=== PATIENT | male | born 1950 | race Caucasian/White ===

== ENCOUNTER 2024-11-15 11:23 | Inpatient (IN) | payer OTHER ==
[2024-11-15 12:50] LABS: Absolute Basophils 0.1 K/uL (0-0.5); Absolute Eosinophils 0.5 K/uL (0-0.5); Absolute Lymphocytes (CBC) 1.9 K/uL (0.7-4.9); Absolute Neutrophil 9.1 K/uL (1.8-8.0); Basophils % 0.6 % (0-1.3); Eosinophils % 4.2 % (0-4.4); Hematocrit 34.6 % (39.6-49.0); Hemoglobin 11.6 g/dL (13.6-17.9); Lymphocytes % 15.2 % (15.3-44.8); MCH 27.3 pg (27.0-35.0); MCHC 33.4 g/dL (32.0-36.0); MCV 81.6 fL (80-100); MPV 9.4 fL (7.6-11.3); Platelets 408 thou/uL (152-406); RBC Red Blood Cell Count 4.24 M/uL (4.33-5.43)
[2024-11-15 12:59] LABS: PT Prothrombin Time 11.9 SECONDS (10.0-13.0); Protime INR 1.05
--- NOTE | 2024-11-15 13:57 | RAD REPORT ---
EXAMINATION: XR Foot Right 3 View CLINICAL INDICATION: Male, 74 years old. [facility] MAIN gangrene 5th toe Bed Name: [id number] TECHNIQUE: 3 view radiographs of the right foot were obtained. COMPARISON: No prior exam. FINDINGS: No evidence of fracture or dislocation. No suspicious focal bone lesion. Soft tissues show mild swelling along the lateral forefoot. Mild calcaneal spur. Enthesopathy at the Achilles tendon attachment. Vascular calcifications. No significant degenerative changes. IMPRESSION: No acute osseous abnormalities. Soft tissue swelling along the lateral forefoot.
--- NOTE | 2024-11-15 14:34 | ER ---
Nurse's Notes [facility] Name: Magen Zhao Age: 74 yrs Sex: Male : 1950 Arrival Date: 11/15/2024 Time: 11:23 Bed 15 Private MD: Diagnosis: Gangrene, not elsewhere classified;Cellulitis of right toe Presentation: 11/15 11:50 Chief complaint: Patient states: blackened right pinky toe , hx of diabetes, sister iw says the last time she checked it was a month ago, he has no feeling in his foot , thinks he might have ran over it with his wheelchair. Coronavirus screen: At this time, the client does not indicate any symptoms associated with coronavirus-19. Ebola Screen: No symptoms or risks identified at this time. Initial Sepsis Screen: Does the patient meet any 2 criteria? No. Patient's initial sepsis screen is negative. Does the patient have a suspected source of infection? No. Patient's initial sepsis screen is negative. Risk Assessment: Do you want to hurt yourself or someone else? Patient reports no desire to harm self or others. Onset of symptoms was September 2024. 11:50 Method Of Arrival: Wheelchair iw 11:50 Acuity: ELAINE 3 iw Triage Assessment: 11:53 General: Appears in no apparent distress. Behavior is calm, cooperative. Pain: Denies iw pain. Musculoskeletal: Amputation of right fifth toe. Historical: - Allergies: 11:52 No Known Allergies; iw - Home Meds: 12:36 amlodipine 10 mg tablet 2 times per day [Active]; levetiracetam 500 mg oral tablet 2 iw times per day [Active]; famotidine 40 mg oral tablet daily [Active]; fluoxetine 20 mg Oral tablet daily [Active]; atorvastatin 20 mg oral tablet daily [Active]; clopidogrel 75 mg oral tablet daily [Active]; lisinopril 40 mg Oral tablet daily [Active]; - PMHx: 11:52 Diabetes mellitus; Hypertensive disorder; iw - PSHx: 11:52 left AKA; iw - Immunization history:: Adult Immunizations up to date. - Infectious Disease History:: Denies. - Social history:: Smoking status: Patient reports the use of cigarette tobacco products, cigars. - Family history:: not pertinent. - Hospitalizations: : No recent hospitalization is reported. Screenin:07 [facility] ED Fall Risk Assessment (Adult) History of falling in the last 3 months, db including since admission Yes- single mechanical fall (1 pt) Confusion or Disorientation No (0 pts) Intoxicated or Sedated No (0 pts) Impaired Gait Yes (1 pt) Mobility Assist Device Used Yes (1 pt) Altered Elimination No (0 pt) Score/Fall Risk Level 3 or more points = High Risk Oriented to surroundings, Maintained a safe environment. Abuse screen: Denies threats or abuse. Denies injuries from another. Nutritional screening: No deficits noted. Tuberculosis screening: No symptoms or risk factors identified. Assessment: 14:43 Reassessment: Patient appears in no apparent distress at this time. Patient and/or db family updated on plan of care and expected duration. Pain level reassessed. 16:00 Reassessment: Patient appears in no apparent distress at this time. Patient and/or db family updated on plan of care and expected duration. Pain level reassessed. Patient is alert, oriented x 3, equal unlabored respirations, skin warm/dry/pink. 17:20 Reassessment: PATIENT PROVIDED DINNER TRAY. db 17:26 Reassessment: Patient appears in no apparent distress at this time. Patient and/or db family updated on plan of care and expected duration. Pain level reassessed. Patient is alert, oriented x 3, equal unlabored respirations, skin warm/dry/pink. SISTERS CONTACT. BRAYDEN RUTHERFORD [phone]. 18:30 Reassessment: Patient appears in no apparent distress at this time. Patient and/or db family updated on plan of care and expected duration. Pain level reassessed. Patient is alert, oriented x 3, equal unlabored respirations, skin warm/dry/pink. General: Appears in no apparent distress. comfortable. Neuro: Level of Consciousness is awake, alert, obeys commands, Oriented to person, place, time, situation. Respiratory: Airway is patent Respiratory effort is even, unlabored, Respiratory pattern is regular, symmetrical. Vital Signs: 11:50 BP 139 / 81; Pulse 79; Resp 16; Temp 97; Pulse Ox 100% ; Weight 63.5 kg; Height 5 ft. 6 iw in. ; 15:45 BP 162 / 88; Pulse 67; Resp 18; Pulse Ox 96% ; db 16:00 BP 178 / 94; Pulse 67; Resp 16; Pulse Ox 96% ; db 11/16 09:30 BP 172 / 78 LA Supine (auto/reg); Pulse 67; Resp 16 S; Pulse Ox 100% on R/A; td1 11/15 11:50 Body Mass Index 22.60 (63.50 kg, 167.64 cm) iw ED Course: 11/15 11:27 Patient arrived in ED. al6 11:30 Sung Lr MD is Attending Physician. rn 11:52 Triage completed. iw 11:52 Arm band placed on. iw 12:15 First set of blood cultures drawn by me. bc6 12:45 Second set of blood cultures drawn by me. bc6 12:47 Blood Culture Adult (2) Sent. bc6 12:47 CBC with Diff Sent. bc6 12:47 CMP Sent. bc6 12:48 Lactate w/ 2H reflex if indic. Sent. bc6 12:48 Protime (+inr) Sent. bc6 12:48 Ptt, Activated Sent. bc6 12:48 Initial lab(s) drawn, by me, sent to lab. Inserted saline lock: 20 gauge in right bc6 forearm, using aseptic technique. Blood collected. Flushed with 10 mL NS. 13:21 XRAY Foot RIGHT 3 View In Process Unspecified. EDMS 14:00 Patient placed in an exam room, on a stretcher. bp 14:24 Lower Extremity Artery Uni Ltd US In Process Unspecified. EDMS 14:28 Simi Alston, RN is Primary Nurse. db 14:33 Max Tavares MD is Hospitalizing Provider. rn 14:43 Patient moved back from radiology. db 15:45 Lab(s) recollected, by me, sent to lab. EKG done, by ED staff. db 19:10 Patient has correct armband on for positive identification. Bed in low position. Side db rails up X 1. Provided Education on: ADMISSION. Client placed on continuous cardiac and pulse oximetry monitoring. NIBP monitoring applied. air sampling and monitoring on. Pulse ox on. NIBP on. Warm blanket given. Pillow given. 19:10 No provider procedures requiring assistance completed. Patient admitted, IV remains in db place. 11/16 06:52 Primary Nurse role handed off by Simi Alston, RN bd 08:34 Repositioned into more comfortable position. td1 Administered Medications: 11/15 15:45 Drug: vancoMYCIN IVPB 1 grams IVPB once over 2 hrs Route: IVPB; Infused Over: 2 hrs; db Site: right forearm; 17:30 Follow up: Response: No adverse reaction; IV Status: Completed infusion; IV Intake: db 250ml Medication: 16:07 VIS not applicable for this client. db Intake: 17:30 IV: 250ml; Total: 250ml. db Outcome: 14:34 Decision to Hospitalize by Provider. rn 19:10 Admitted to ER Hold. Please see [facility] for further documentation. db 19:10 Condition: stable 19:10 Instructed on the need for admit, 11/16 10:15 Patient left the ED. db Signatures: Dispatcher [employer] EDMS Holly Godfrey Irene, RN RN iw Sung Lr MD MD rn Peltier, Brian, RN RN bp Benton, Danielle, RN RN db Riya Jaquez bc6 Latoya Flores al6 Ayaz Wood td1 Corrections: (The following items were deleted from the chart) 11/15 11:53 11:50 BP 154 / 100; Pulse 79bpm; Resp 16bpm; Pulse Ox 100%; Temp 97F; 63.5 kg; Height 5 iw ft. 6 in.; BMI: 22.6; iw
--- NOTE | 2024-11-15 14:34 | EDPHYS ---
Physician Documentation [facility] Name: Magen Zhao Age: 74 yrs Sex: Male : 1950 Arrival Date: 11/15/2024 Time: 11:23 Bed 15 Private MD: ED Physician Sung Lr HPI: 11/15 12:39 This 74 yrs old Male presents to ER via Wheelchair with complaints of open wound check. rn 12:39 The patient presents with Black toe. The complaints affect the right foot. Onset: The rn symptoms/episode began/occurred at an unknown time. The patient has not experienced similar symptoms in the past. Patient and family report last looked at his feet 1 month ago. Checked feet today and noticed a black fifth toe. Unknown if trauma but patient is concerned he ran over with wheelchair. No fever or chills. Has neuropathy and does not feel his foot. Denies pain. No redness or warmth.. Historical: - Allergies: 11:52 No Known Allergies; iw - Home Meds: 12:36 amlodipine 10 mg tablet 2 times per day [Active]; levetiracetam 500 mg oral tablet 2 iw times per day [Active]; famotidine 40 mg oral tablet daily [Active]; fluoxetine 20 mg Oral tablet daily [Active]; atorvastatin 20 mg oral tablet daily [Active]; clopidogrel 75 mg oral tablet daily [Active]; lisinopril 40 mg Oral tablet daily [Active]; - PMHx: 11:52 Diabetes mellitus; Hypertensive disorder; iw - PSHx: 11:52 left AKA; iw - Immunization history:: Adult Immunizations up to date. - Infectious Disease History:: Denies. - Social history:: Smoking status: Patient reports the use of cigarette tobacco products, cigars. - Family history:: not pertinent. - Hospitalizations: : No recent hospitalization is reported. ROS: 12:39 Constitutional: Negative for fever, chills, and weight loss, Cardiovascular: Negative rn for chest pain, palpitations, and edema, Respiratory: Negative for shortness of breath, wheezing, and pleuritic chest pain, Abdomen/GI: Negative for abdominal pain, nausea, vomiting, diarrhea, and constipation, MS/Extremity: Positive for black toe, right foot Neuro: Negative for headache Exam: 12:39 Constitutional: This is a well developed, well nourished patient who is awake, alert, rn and in no acute distress. Cardiovascular: Regular rate and rhythm . No pulse deficits. MS/ Extremity: No cyanosis noted. Has dry gangrene of the right fifth toe. Does not extend towards foot. No drainage or fluctuance. Does have foul smell. Difficult to appreciate any pulses in right foot. 16:46 ECG was reviewed by the Attending Physician. rn Vital Signs: 11:50 BP 139 / 81; Pulse 79; Resp 16; Temp 97; Pulse Ox 100% ; Weight 63.5 kg; Height 5 ft. 6 iw in. ; 15:45 BP 162 / 88; Pulse 67; Resp 18; Pulse Ox 96% ; db 16:00 BP 178 / 94; Pulse 67; Resp 16; Pulse Ox 96% ; db 11/16 09:30 BP 172 / 78 LA Supine (auto/reg); Pulse 67; Resp 16 S; Pulse Ox 100% on R/A; td1 11/15 11:50 Body Mass Index 22.60 (63.50 kg, 167.64 cm) iw MDM: 11/15 11:30 Medical Screening Exam initiated rn 14:32 Differential diagnosis: fracture, cellulitis, Gangrene, osteomyelitis. Data reviewed: rn vital signs, nurses notes, lab test result(s), radiologic studies, plain films, ultrasound, and as a result, I will admit patient. Consideration of Admission/Observation Patient was admitted/placed on observation. Escalation of care including admission/observation considered. Counseling: I had a detailed discussion with the patient and/or guardian regarding the historical points, exam findings, and any diagnostic results supporting the discharge/admit diagnosis, lab results, radiology results, the need for further work-up and treatment in the hospital. ED course: Patient with elevated WBC, x-ray without fracture or signs of osteomyelitis. Will admit for gangrene and cellulitis of the right toe and foot. Normal lactic acid.. 11/15 11:55 Order name: Blood Culture Adult (2) rn 11/15 11:55 Order name: CBC with Diff; Complete Time: 13:28 rn 11/15 11:55 Order name: CMP; Complete Time: 16:36 rn 11/15 11:55 Order name: Lactate w/ 2H reflex if indic.; Complete Time: 13:28 rn 11/15 11:55 Order name: Protime (+inr); Complete Time: 13:28 rn 11/15 11:55 Order name: Ptt, Activated; Complete Time: 13:28 rn 11/16 07:43 Order name: Glucose, Ancillary Testing EDMS 11/15 11:55 Order name: XRAY Foot RIGHT 3 View; Complete Time: 14:03 rn 11/15 13:15 Order name: Lower Extremity Artery Uni Ltd US; Complete Time: 16:49 rn 11/15 11:55 Order name: EKG; Complete Time: 11:55 rn 11/15 11:55 Order name: Accucheck; Complete Time: 16:05 rn 11/15 11:55 Order name: Cardiac monitoring; Complete Time: 16:05 rn 11/15 11:55 Order name: EKG - Nurse/Tech; Complete Time: 16:05 rn 11/15 11:55 Order name: IV Saline Lock - Large Bore; Complete Time: 12:47 rn 11/15 11:55 Order name: Labs collected and sent; Complete Time: 12:47 rn 11/15 11:55 Order name: O2 Per Protocol; Complete Time: 16: rn 11/15 11:55 Order name: O2 Sat Monitoring; Complete Time: 16:05 rn 11/15 11:55 Order name: Vital Signs; Complete Time: 16:05 rn 11/15 15:12 Order name: Misc. Order: recollect CMP (Light green top); Complete Time: 16:05 la1 EC:46 Rate is 67 beats/min. Rhythm is regular. QRS [place] is Normal. TX interval is normal. QRS rn interval is normal. QT interval is normal. No Q waves. T waves are Normal. No ST changes noted. Clinical impression: NSR w/ Non-specific ST/T Changes. Interpreted by me. Reviewed by me. Administered Medications: 15:45 Drug: vancoMYCIN IVPB 1 grams IVPB once over 2 hrs Route: IVPB; Infused Over: 2 hrs; db Site: right forearm; 17:30 Follow up: Response: No adverse reaction; IV Status: Completed infusion; IV Intake: db 250ml Disposition Summary: 11/15/24 14:34 Hospitalization Ordered Notes: Hospitalization Status: Inpatient Admission rn Provider: Max Tavares rn Condition: Stable rn Problem: new rn Symptoms: are unchanged rn Bed/Room Type: Standard rn Location: Telemetry/MedSurg (Inpatient)(11/16/24 08:29) bd Room Assignment: 229(11/16/24 08:29) bd Diagnosis - Gangrene, not elsewhere classified rn - Cellulitis of right toe rn Forms: - Medication Reconciliation Form rn - SBAR form rn - Leadership Thank You Letter rn Signatures: Dispatcher [employer] EDHolly George Irene, RN RN iw Nieto, Roman, MD MD rn Attema, Lee, WIRED MUSIC OPERATOR-C WIRED MUSIC OPERATOR-Cla1 Hallie Pimentel RN RN kb3 Simi Alston RN RN db Corrections: (The following items were deleted from the chart) 17:24 14:34 Telemetry/MedSurg (Inpatient) rn kb3 17:24 14:34 rn kb3 11/16 08:29 11/15 17:24 [facility] ER HOLD kb3 bd 11/16 08:11/15 17:24 ERHOLD- kb3 bd
[2024-11-15] MEDS ORDERED: NA CHLORIDE 0.9% 250 ML ONE (15:11)
[2024-11-15] MEDS ORDERED: VANCOMYCIN 1 GM/VIAL ONE (15:11)
--- NOTE | 2024-11-15 15:18 | P.HP ---
Certification for Inpatient Patient admitted to: Inpatient With expected LOS: >2 Midnights Patient will require the following post-hospital care: None Practitioner: I am a practitioner with admitting privileges, knowledge of patient current condition, hospital course, and medical plan of care. Services: Services provided to patient in accordance with Admission requirements found in Title 42 Section 412.3 of the Code of Federal Regulations Patient History Date of Service: 11/15/24 Reason for admission: Dry gangrene History of Present Illness: 74-year-old male with history of tobacco use disorder, zjw-pbbmivt-udytybkqa diabetes, hypertension, hyperlipidemia and seizure disorder presents to the emergency department chief complaint of foot wound. He and his family noticed that his right fifth toe was black today, unsure how long has been like this possibly up to a month. Patient was evaluated in the emergency department his labs are significant for leukocytosis with a white blood cell count of 12.7 lactic acid was 1.8, x-ray did not show signs of osteomyelitis or gas or infection, arterial Doppler showed monophasic flow. Patient be admitted for further evaluation management of dry gangrene. - Past Medical/Surgical History -: Uvt-pvxarcl-ihpegbeob diabetes -: Tobacco use disorder -: Hypertension -: Hyperlipidemia -: Seizure disorder -: Left AKA Psychosocial/ Personal History: Patient is at home with his sister - Family History Family History: Reviewed- Non-Contributory - Social History Smoking Status: Current every day smoker Alcohol use: No CD- Drugs: No Caffeine use: Yes Place of Residence: Home Review of Systems 10-point ROS is otherwise unremarkable Integumentary: As per HPI Physical Examination - Physical Exam General: Alert, In no apparent distress, Oriented x3 HEENT: Atraumatic, PERRLA, EOMI Neck: Supple, 2+ carotid pulse no bruit, No LAD Respiratory: Clear to auscultation bilaterally, Normal air movement Cardiovascular: Regular rate/rhythm, Normal S1 S2 Gastrointestinal: Normal bowel sounds, No tenderness Musculoskeletal: No tenderness Integumentary: Other (Dry gangrene of the left fifth toe) Neurological: Normal gait, Normal speech, Normal tone, Normal affect - Studies Laboratory Data (last 24 hrs) 11/15/24 11/15/24 12:45 12:45 WBC 12.70 H Hgb 11.6 L Hct 34.6 L Plt Count 408 H PT 11.9 INR 1.05 APTT 34.0 Assessment and Plan - Plan Assessment: Dry gangrene left fifth toe PAD Tobacco use disorder Diabetes mellitus type [id number] Hypertension Hyperlipidemia Seizure disorder Plan: Dry gangrene left fifth toe PAD Arterial Doppler with monophasic flow, no occlusion Dry gangrene presents with left fifth toe General surgery consultation, IV antibiotics with vancomycin Anticipate need for debridement/possible amputation 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, 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 Tobacco use disorder Counseled extensively on need for tobacco cessation and its contribution to his poor circulation/infections Diabetes mellitus type [id number]-[id number] ACHS Accu-Chek, sliding scale insulin, A1c in the morning Hypertension Hyperlipidemia Seizure disorder Continue home medications when verified DVT PPX: SCD Code status: Full Discharge Plan: Home Plan to discharge in: Greater than 2 days - Advance Directives Does patient have a Living Will: No Does patient have a Durable POA for Healthcare: No - Code Status/Comfort Care Code Status Assessed: Yes (Full code) Critical Care: No Time Spent Managing Pts Care (In Minutes): 65
[2024-11-15 16:32] LABS: AST/SGOT 14 U/L (15-37); Albumin 2.3 g/dL (3.4-5.0); Albumin/Globulin Ratio 0.5 (1.1-1.8); Alkaline Phosphatase 110 U/L (45-117); BUN Blood Urea Nitrogen 17 mg/dL (7-18); Bicarbonate 29 mEq/L (21-32); Bilirubin Total 0.2 mg/dL (0.2-1.0); Globulin 4.9 g/dL (2.3-3.5); Glomerular Filtration Rate 48 ml/min (=/>90); Glucose Level 128 mg/dL (74-106); Protein, Total 7.2 g/dL (6.4-8.2); Sodium Level 142 mEq/L (136-145)
[2024-11-15 16:34] LABS: ALT/SGPT < 14 U/L (16-61)
--- NOTE | 2024-11-15 16:48 | RAD REPORT ---
EXAMINATION:Lower Extremity Artery Uni Ltd CLINICAL INDICATION: Male, 74 years old. [facility] MAIN right leg gangrene right 5th toe Bed Name: IW1 TECHNIQUE: Arterial duplex ultrasound was performed of the Right lower extremity with real-time, colo r-flow, and spectral wave Doppler evaluation. COMPARISON: No prior exam. FINDINGS: Moderate to advanced plaque throughout the evaluated arterial system. Triphasic to biphasic waveform s are seen throughout the evaluated Right lower extremity arterial system, to the level of the popliteal artery. Monophasic waveforms seen along the right dorsalis pedis and posterior tibial arter ies. No other suspicious findings. IMPRESSION: Evidence of up to moderate peripheral vascular disease.
[2024-11-15 19:36] VITALS: BMI 22.6
[2024-11-16] MEDS: FLU (Fluarix Triv) TS24-25(6MOS UP)/PF 45 MCG/0.5 ML Syringe IM ONE (07:15)
[2024-11-16] MEDS: PNEUMOCOCCAL VACCINE 0.5 ML IMVAC ONE (08:00)
[2024-11-16] MEDS ORDERED: HYDROCODONE/APAP 5/325 MG TAB PO PRN (11:46)
[2024-11-16] MEDS ORDERED: ONDANSETRON 4 MG/2 ML VIAL IV PRN (11:46)
[2024-11-16] MEDS ORDERED: MELATONIN 5 MG TABLET PO PRN (11:46)
[2024-11-16] MEDS ORDERED: MORPHINE 2 MG/ML SYR IV PRN (11:46)
[2024-11-16] MEDS: NA CHLORIDE 0.9% 1,000 ML ONE (12:21)
[2024-11-16] MEDS ORDERED: ONDANSETRON 4 MG/2 ML VIAL ONE (12:26)
[2024-11-16] MEDS ORDERED: FENTANYL CITR 100 MCG/2 ML ONE (12:26)
[2024-11-16] MEDS ORDERED: propofoL 200 MG/20 ML VIAL IV ONE (12:26)
[2024-11-16] MEDS ORDERED: LIDOCAINE 2% MPF 5 ML VIAL ONE (12:26)
[2024-11-16 12:36] LABS: Absolute Basophils 0.1 K/uL (0-0.5); Absolute Eosinophils 0.4 K/uL (0-0.5); Absolute Lymphocytes (CBC) 1.9 K/uL (0.7-4.9); Absolute Monocytes 0.7 K/uL (0.1-1.3); Absolute Neutrophil 8.2 K/uL (1.8-8.0); Eosinophils % 3.2 % (0-4.4); Hematocrit 34.7 % (39.6-49.0); Hemoglobin 11.8 g/dL (13.6-17.9); Lymphocytes % 16.5 % (15.3-44.8); MCH 27.7 pg (27.0-35.0); MCV 81.4 fL (80-100); Monocytes % 6.4 % (3.3-12.3); Neutrophils % 72.9 % (41.7-73.7); Platelets 320 thou/uL (152-406); RBC Red Blood Cell Count 4.26 M/uL (4.33-5.43); Red Cell Distribution Width 14.3 % (12.1-15.2)
[2024-11-16 12:45] LABS: Anion Gap 9.6 mEq/L (5.0-15.0); Potassium 3.6 mEq/L (3.5-5.1)
--- NOTE | 2024-11-16 13:16 | P.CNS ---
Date of Consult: 11/16/24 PC: I was asked to see this 74-year-old male in regards to dry gangrene of the small toe on his right foot. HPC: Patient has had this process going on for the last few weeks. Thinks he may have banged it against something. Toe has progressively gotten black, now starting to have a foul odor. PSHx: Previous left leg amputation PMHx: Hypertension, diabetes, seizure disorder, hyperlipidemia Social Hx: No known allergies Sys R: No cough, wheeze, shortness of breath. No chest pain or palpitations. Lives at home with his sister. O/E: Awake alert vital signs are stable HEENT: Negative Chest: Air entry equal bilaterally Abd: Negative [place]: Has a black toe with the tissue on his right foot, small toe. Doppler show he does have adequate blood flow to support amputation in that area. Data: X-ray reviewed, no osteo seen Impression: Dry gangrene fifth toe right foot Plan: I will taken the operating room for an amputation of the fifth toe right foot. The risks of this procedure have been discussed. The possibility of bleeding, infection, nonhealing and need for further surgeries in the future were explained. He understands and wants us to proceed.
[2024-11-16] MEDS ORDERED: EPHEDRINE SULF 50 MG/ML VIAL ONE (13:42)
--- NOTE | 2024-11-16 14:16 | P.OP ---
Preoperative diagnosis: Gangrene of the right fifth toe Postoperative diagnosis: The same Primary procedure: Amputation of the right fifth toe Anesthesia: General Estimated blood loss: Less than 10 cc Specimen: Necrotic toe and the necrotic tissue Operative Technique: Patient brought the operating room placed supine on the table. After the induction of adequate general anesthesia, the area of the right foot was prepped with a Betadine solution and draped in usual aseptic manner. Attention was turned towards right fifth toe. The necrotic toe was maneuvered in such a way as we could incise around this in a tennis racquet shaped incision. We were able to traced this down to the base of the metatarsal phalangeal joint. The toe was amputated, leaving the risks the joint capsule intact underneath. The wound was inspected to ensure adequate hemostasis. Judicious use of the electrocautery allowed us to do so. The wound was then approximated loosely with nylon sutures. At the end of the procedure the patient was in a stable condition was sent to the recovery room. A sterile dressing and been applied. Complications: None Transferred to: Recovery Room Condition: Good
[2024-11-16 14:39] VITALS: O2SAT 97
[2024-11-16] MEDS: NA CHLORIDE 0.9% 1,000 ML IV SCH (15:15)
[2024-11-16] MEDS: VANCOMYCIN 1 GM in NA CHLORIDE 0.9% 250 ML IVPB SCH (15:16)
[2024-11-16] MEDS: lisinopriL 20 MG TAB PO ONE (15:25)
[2024-11-16] MEDS: levETIRAcetam 500 MG TAB PO SCH (16:15)
[2024-11-16] MEDS ORDERED: HOME MED 1 EA UNK (Levetiracetam [Keppra Xr] 500 MG Tab.Er.24h) PO SCH (21:00)
[2024-11-16] MEDS ORDERED: lisinopriL 20 MG TAB PO SCH (21:00)
[2024-11-16] MEDS: GABAPENTIN 300 MG CAP PO SCH (21:36)
[2024-11-16] MEDS: PANTOPRAZOLE 40MG TABLET PO SCH (21:36)
[2024-11-16] MEDS: ATORVASTATIN 20 MG TAB PO SCH (21:37)
[2024-11-17 04:38] LABS: Hematocrit 30.7 % (39.6-49.0); Hemoglobin 10.6 g/dL (13.6-17.9); MCH 27.9 pg (27.0-35.0); MCHC 34.4 g/dL (32.0-36.0); MCV 81.1 fL (80-100); Platelets 259 thou/uL (152-406); RBC Red Blood Cell Count 3.78 M/uL (4.33-5.43); Red Cell Distribution Width 14.1 % (12.1-15.2)
[2024-11-17] MEDS: CLOPIDOGREL 75 MG TABLET PO SCH (10:20)
[2024-11-17] MEDS: AMLODIPINE 10 MG TAB PO SCH (10:20)
[2024-11-17] MEDS: POTASSIUM CL SA 10 MEQ TAB PO ONE (10:21)
[2024-11-17] MEDS: FLUOXETINE 20 MG CAP PO SCH (10:21)
[2024-11-17 12:13] VITALS: BP 153/74; TEMP 98
--- NOTE | 2024-11-17 16:02 | P.DS ---
Admission Date: 11/15/24 Discharge Date: 11/17/24 Disposition: DC HOME/HOME HEALTH CARE Discharge Condition: GOOD Reason for Admission: Dry gangrene Brief History of Present Illness: 74-year-old male with history of tobacco use disorder, bzj-bveudlg-oskihsbqq diabetes, hypertension, hyperlipidemia and seizure disorder presents to the emergency department chief complaint of foot wound. He and his family noticed that his right fifth toe was black today, unsure how long has been like this possibly up to a month. Patient was evaluated in the emergency department his labs are significant for leukocytosis with a white blood cell count of 12.7 lactic acid was 1.8, x-ray did not show signs of osteomyelitis or gas or infection, arterial Doppler showed monophasic flow. Patient be admitted for further evaluation management of dry g angrene. Hospital Course: Assessment: Dry gangrene right fifth toe S/P amputation PAD Tobacco use disorder Diabetes mellitus type 0rfi-gviwpgs-hmzqtalpr Hypertension Hyperlipidemia Seizure disorder Patient was admitted to the hospital for dry gangrene of the right fifth toe. He underwent amputation of the right fifth toe with general surgery on 11/16 and has been doing well postoperatively. He has a previous left lower extremity amputation and at home has a wheelchair, bedside commode and hospital bed. It is recommended that he continues to use his wheelchair for getting around. He has been set up with home health, longterm and PT as well. On his arterial Doppler he was noted to have monophasic arterial flow in the right lower extremity. It is recommended that he also follow-up with the vascular surgeon to address the sluggish slow if possible, he was also informed that he need to quit smoking. Prescription for antibioticdoxycycline sent to his pharmacy [facility] in [place] Wound care as below: clean with soap and water, apply dry gauze. Follow up in wound care center on Thursday 11/23-call for appointment Vital Signs/Physical Exam: Temp Pulse Resp BP Pulse Ox 98.0 F 74 22 H 153/74 H 96 11/17/24 12:00 11/17/24 12:00 11/17/24 12:00 11/17/24 12:11/17/24 12:00 General: Alert, In no apparent distress, Oriented x3 HEENT: Atraumatic, PERRLA Neck: Supple, JVD not distended Respiratory: Clear to auscultation bilaterally, Normal air movement Cardiovascular: Regular rate/rhythm, Normal S1 S2 Gastrointestinal: Normal bowel sounds, No tenderness Musculoskeletal: Other (Left aka, right 5th toe amp) Integumentary: No rashes Neurological: Normal speech, Normal affect Laboratory Data at Discharge: WBC 10.90 thou/uL (4.3-10.9) 11/17/24 04:12 Hgb 10.6 g/dL (13.6-17.9) L D 11/17/24 04:12 Hct 30.7 % (39.6-49.0) L 11/17/24 04:12 Plt Count 259 thou/uL (152-406) 11/17/24 04:12 PT 11.9 SECONDS (10.0-13.0) 11/15/24 12:45 INR 1.05 11/15/24 12:45 APTT 34.0 SECONDS (24.3-36.9) 11/15/24 12:45 Sodium 145 mEq/L (136-145) 11/17/24 04:12 Potassium Cancelled 11/17/24 Unknown BUN 21 mg/dL (7-18) H 11/17/24 04:12 Creatinine 1.37 mg/dL (0.70-1.30) H 11/17/24 04:12 Glucose 90 mg/dL (74-106) 11/17/24 04:12 Total Bilirubin 0.2 mg/dL (0.2-1.0) 11/15/24 15:48 AST 14 U/L (15-37) L 11/15/24 15:48 ALT < 14 U/L (16-61) L 11/15/24 15:48 Alkaline Phosphatase 110 U/L (45-117) 11/15/24 15:48 Home Medications: Amlodipine Besylate 10 mg PO DAILY 11/15/24 Atorvastatin Calcium 20 mg PO DAILY 11/15/24 Clopidogrel Bisulfate [Plavix*] 75 mg PO DAILY 11/15/24 Famotidine 40 mg PO BEDTIME 11/15/24 Fluoxetine HCl 20 mg PO DAILY 11/15/24 Gabapentin 300 mg PO BID 11/15/24 Levetiracetam [Keppra Xr] 500 mg PO BID 11/15/24 Pantoprazole [Protonix Tab*] 20 mg PO BEDTIME 11/15/24 lisinopriL [Lisinopril] 40 mg PO BEDTIME 11/15/24 Doxycycline Hyclate 100 mg PO BID #14 tab 11/17/24 New Medications: Doxycycline Hyclate 100 mg PO BID #14 tab Physician Discharge Instructions: Patient was admitted to the hospital for dry gangrene of the right fifth toe. He underwent amputation of the right fifth toe with general surgery on 11/16 and has been doing well postoperatively. He has a previous left lower extremity amputation and at home has a wheelchair, bedside commode and hospital bed. It is recommended that he continues to use his wheelchair for getting around. He has been set up with home health, longterm and PT as well. On his arterial Doppler he was noted to have monophasic arterial flow in the right lower extremity. It is recommended that he also follow-up with the vascular surgeon to address the sluggish slow if possible, he was also informed that he need to quit smoking. Prescription for antibioticdoxycycline sent to his pharmacy [facility] in [place] Wound care as below: clean with soap and water, apply dry gauze. Follow up in wound care center on Thursday 11/23-call for appointment Diet: ADA Activity: Wheelchair Followup: Dave Singh MD [ACTIVE - CAN ADMIT] - 11/23/24 ([phone]) NONE,NONE [Primary Care Provider] - Amrit Schulz MD [ACTIVE - CAN ADMIT] - (On his arterial Doppler he was noted to have monophasic arterial flow in the right lower extremity. It is recommended that he also follow-up with the vascular surgeon to address the sluggish slow if possible) Time spent managing pt's care (in minutes): 45
--- NOTE | 2024-11-17 16:02 | P.PN ---
Date of Service: 11/16/24 Subjective: Well postop right fifth toe amputation No acute events overnight ROS: 10 point ROS as noted above, otherwise negative Physical exam GEN: Alert, oriented, NAD HEENT: Normal conjunctiva, sclera anicteric CV: Regular rate and rhythm, no edema Pulm: Nonlabored respirations on room air ABD: Soft, nontender, nondistended MSK: No joint tenderness, left AKA, right fifth toe amputation Integumentary: No rashes Neuro: Normal speech, normal affect Vitals reviewed Assessment: Dry gangrene right fifth toe S/P amputation PAD Tobacco use disorder Diabetes mellitus type [id number] Hypertension Hyperlipidemia Seizure disorder Plan: Dry gangrene right fifth toe PAD Arterial Doppler with monophasic flow, no occlusion Dry gangrene presents with left fifth toe General surgery consultation, IV antibiotics with vancomycin Anticipate need for debridement/possible amputation MEDICAL IMAGING SPECIALIST after midnight, 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 Tobacco use disorder Counseled extensively on need for tobacco cessation and its contribution to his poor circulation/infections Diabetes mellitus type [id number] ACHS Accu-Chek, sliding scale insulin, A1c in the morning Hypertension Hyperlipidemia Seizure disorder Continue home medications when verified Time Spent Managing Pts Care (In Minutes): 35
--- NOTE | 2024-11-17 16:52 | EKG ---
Test Date: 2024-11-15 Test Time: 15:56:59 Bass Mechanism Maker: VERONICA MEASUREMENT RESULTS: Intervals: Rate: 67 ME: 130 QRSD: 76 QT: 450 QTc: 475 Homer: P: 48 ME: 130 QRS: 38 T: 37 INTERPRETIVE STATEMENTS: Sinus rhythm with premature atrial complexes Otherwise normal ECG No previous ECG available for comparison Electronically Signed On 11-17-24 16:46:07 SAP SENIOR DEVELOPER by Gilbert Munson
[2024-11-17] MEDS ORDERED: lisinopriL 20 MG TAB PO SCH (21:00)
== END 2024-11-17 14:51 | disposition home health service (06) | DRG 257 ==
LOC: ER 11:23 → ERHOLD 15:07 → 2ND 11-16 08:58
PROVIDERS: ADMIT Hospitalist; ATTEND Hospitalist
PROC: 0Y6X0Z0 Detachment at Right 5th Toe, Complete, Open Approach (ICD-10-PCS; principal; 2024-11-16 13:00)
DX: E11.52 Type 2 diabetes mellitus with diabetic peripheral angiopathy with gangrene (principal); E78.5 Hyperlipidemia, unspecified; I10 Essential (primary) hypertension; L03.031 Cellulitis of right toe; G40.909 Epilepsy, unspecified, not intractable, without status epilepticus; F17.210 Nicotine dependence, cigarettes, uncomplicated; Z71.6 Tobacco abuse counseling; Z79.02 Long term (current) use of antithrombotics/antiplatelets; Z89.612 Acquired absence of left leg above knee; Z79.899 Other long term (current) drug therapy
CPT/HCPCS: 36415; 80048; 80053; 82947; 83036; 83605; 85025; 85027; 85610; 85730; 87040; 87077; 87186; 87205; 88305; 93005; 93926; 96365; 96366; 97161; 97530; 99285; J2003; J2405; J2704; J3010; J7030; J7050

== ENCOUNTER 2024-11-21 13:09 | Emergency (ER) | payer OTHER ==
--- NOTE | 2024-11-21 14:22 | EDPHYS ---
Physician Documentation [facility] Name: Magen Zhao Age: 74 yrs Sex: Male : 1950 Arrival Date: 11/21/2024 Time: 13:09 Bed 12 Private MD: ED Physician Sung Lr HPI: 11/21 14:18 This 74 yrs old Male presents to ER via Wheelchair with complaints of Wound Check. rn 14:18 Patient presents to ED for recheck of: Surgical. The patient has not experienced rn similar symptoms in the past. Patient reports had amputation of the right fifth toe this past week. Has follow-up with wound care tomorrow but today bumped it on something and noticed a drop of blood on the gauze. No drainage. No fever. No foul smell. Wanted to get it evaluated today to make sure he did not mess it up.. Historical: - Allergies: 14:11 No Known Allergies; aa5 - PMHx: 14:10 diabetes mellitus; Hypertensive disorder; aa5 - PSHx: 14:10 Left AKA; Right little toe amputation (Unknown); aa5 - Immunization history:: Adult Immunizations up to date. - Infectious Disease History:: Denies. - Social history:: Smoking status: Patient reports the use of cigarette tobacco products. - Family history:: not pertinent. - Hospitalizations: : The patient was recently seen at [facility]. ROS: 14:18 Constitutional: Negative for fever, chills, and weight loss, MS/Extremity: Denies rn drainage. Did have small injury to the right foot Skin: Negative for injury, rash, and discoloration, Exam: 14:18 Constitutional: This is a well developed, well nourished patient who is awake, alert, rn and in no acute distress. MS/ Extremity: Right foot amputation site clean dry and intact. No erythema or warmth. Has 2 black sutures in wound. No evidence of dehiscence. Vital Signs: 14:09 BP 138 / 91; Pulse 88; Resp 18 S; Temp 98.3(O); Pulse Ox 100% on R/A; aa5 MDM: 13:21 Medical Screening Exam initiated rn 14:18 Differential diagnosis: Foot contusion. Data reviewed: vital signs, nurses notes, and rn as a result, I will discharge patient. Counseling: I had a detailed discussion with the patient and/or guardian regarding the historical points, exam findings, and any diagnostic results supporting the discharge/admit diagnosis, the need for outpatient follow up, to return to the emergency department if symptoms worsen or persist or if there are any questions or concerns that arise at home. Special discussion: I discussed with the patient/guardian in detail that at this point there is no indication for admission to the hospital. It is understood, however, that if the symptoms persist or worsen the patient needs to return immediately for re-evaluation. ED course: Surgical wound appears well-healing. No evidence of infection or dehiscence. Will discharge home with follow-up as scheduled.. Administered Medications: No medications were administered Disposition Summary: 11/21/24 14:21 Discharge Ordered Notes: Location: Home rn Problem: new rn Symptoms: have improved rn Condition: Stable rn Diagnosis - Contusion of right foot rn - Encounter for change or removal of surgical wound dressing rn Followup: rn - With: Private Physician - When: As needed - Reason: Recheck today's complaints, Re-evaluation by your physician Discharge Instructions: - Discharge Summary Sheet rn - Foot Contusion rn - How to Change Your Wound Dressing rn Forms: - Medication Reconciliation Form rn - Antibiotic quality assurance intern - Prescription Opioid Use rn - Patient Portal Instructions rn - Leadership Thank You Letter rn Signatures: Sung Lr MD MD rn Calderon, Audri RN RN aa5
--- NOTE | 2024-11-21 14:22 | ER ---
Nurse's Notes [facility] Name: Magen Zhao Age: 74 yrs Sex: Male : 1950 Arrival Date: 11/21/2024 Time: 13:09 Bed 12 Private MD: Diagnosis: Contusion of right foot;Encounter for change or removal of surgical wound dressing Presentation: 11/21 14:09 Chief complaint: Patient states: Had recent little toe amputation, pt states "I bumped aa5 my foot and it started bleeding a little bit". Coronavirus screen: At this time, the client does not indicate any symptoms associated with coronavirus-19. Ebola Screen: Patient denies travel to an Ebola-affected area in the 21 days before illness onset. Initial Sepsis Screen: Does the patient meet any 2 criteria? No. Patient's initial sepsis screen is negative. Does the patient have a suspected source of infection? No. Patient's initial sepsis screen is negative. Risk Assessment: Do you want to hurt yourself or someone else? Patient reports no desire to harm self or others. Onset of symptoms was November 21, 2024. 14:09 Method Of Arrival: Wheelchair aa5 14:09 Acuity: ELAINE 5 aa5 Historical: - Allergies: 14:11 No Known Allergies; aa5 - PMHx: 14:10 diabetes mellitus; Hypertensive disorder; aa5 - PSHx: 14:10 Left AKA; Right little toe amputation (Unknown); aa5 - Immunization history:: Adult Immunizations up to date. - Infectious Disease History:: Denies. - Social history:: Smoking status: Patient reports the use of cigarette tobacco products. - Family history:: not pertinent. - Hospitalizations: : The patient was recently seen at [facility]. Assessment: 14:37 Reassessment: Patient is alert, oriented x 3, equal unlabored respirations, skin aa5 warm/dry/pink. Vital Signs: 14:09 BP 138 / 91; Pulse 88; Resp 18 S; Temp 98.3(O); Pulse Ox 100% on R/A; aa5 ED Course: 13:12 Patient arrived in ED. mr 13:21 Sung Lr MD is Attending Physician. rn 14:09 Arm band placed on. aa5 14:10 Triage completed. aa5 14:30 Right little toe amputation incision site dressed with non-adherent dressing, gauze, aa5 and Kerlix per MD VO. 14:37 No provider procedures requiring assistance completed. Patient did not have IV access aa5 during this emergency room visit. Administered Medications: No medications were administered Outcome: 14:21 Discharge ordered by . rn 14:37 Discharged to home via wheelchair, [id number] 14:37 Condition: stable 14:37 Discharge instructions given to patient, Instructed on discharge instructions, follow up and referral plans. Demonstrated understanding of instructions, follow-up care, 14:45 Patient left the ED. aa5 Signatures: Leslie Crane, Reg Reg mr Sung Lr MD MD rn Calderon, Audri, RN RN franck
[2024-11-21 15:16] VITALS: BP 138/91; TEMP 98.3; O2SAT 100
== END 2024-11-21 14:45 | disposition home or self-care (01) ==
LOC: ER 13:09
DX: S90.31XA Contusion of right foot, initial encounter (principal); Z48.01 Encounter for change or removal of surgical wound dressing; Z89.421 Acquired absence of other right toe(s)
CPT/HCPCS: 99282

== ENCOUNTER 2024-12-04 21:21 | Inpatient (IN) | payer OTHER ==
[2024-12-04] MEDS ORDERED: NA CHLORIDE 0.9% 250 ML ONE (21:49)
[2024-12-04] MEDS ORDERED: ACETAMINOPHEN 500 MG TAB ONE (21:49)
[2024-12-04] MEDS ORDERED: VANCOMYCIN 1 GM/VIAL ONE (21:49)
[2024-12-04] MEDS ORDERED: NA CHLORIDE 0.9% 100 ML ONE (21:50)
[2024-12-04] MEDS ORDERED: PIPERACIL/TAZO 3.375 GM VIAL IV ONE (21:50)
[2024-12-04 22:03] LABS: Absolute Lymphocytes (CBC) 1.4 K/uL (0.7-4.9); Absolute Monocytes 1.8 K/uL (0.1-1.3); Absolute Neutrophil 22.4 K/uL (1.8-8.0); Basophils % 0.2 % (0-1.3); Eosinophils % 0.2 % (0-4.4); Hematocrit 30.9 % (39.6-49.0); Hemoglobin 10.4 g/dL (13.6-17.9); Lymphocytes % 5.4 % (15.3-44.8); MCH 26.8 pg (27.0-35.0); MCHC 33.5 g/dL (32.0-36.0); MCV 79.9 fL (80-100); MPV 8.3 fL (7.6-11.3); Monocytes % 7.1 % (3.3-12.3); Neutrophils % 87.1 % (41.7-73.7); Platelets 487 thou/uL (152-406); RBC Red Blood Cell Count 3.87 M/uL (4.33-5.43); Red Cell Distribution Width 14.5 % (12.1-15.2)
[2024-12-04 22:12] LABS: PT Prothrombin Time 15.7 SECONDS (10-13.0); PTT, Activated Partial Thromb 38.3 SECONDS (27.2-37.4); Protime INR 1.4
[2024-12-04 22:23] LABS: Albumin 1.9 g/dL (3.4-5.0); Albumin/Globulin Ratio 0.3 (1.1-1.8); Anion Gap 11.5 mEq/L (5.0-15.0); Bilirubin Total 0.5 mg/dL (0.2-1.0); Globulin 5.8 g/dL (2.3-3.5); Protein, Total 7.7 g/dL (6.4-8.2)
[2024-12-04 22:25] LABS: Potassium 2.5 mEq/L (3.5-5.1)
--- NOTE | 2024-12-04 22:26 | EDPHYS ---
Physician Documentation [facility] Name: Magen Zhao Age: 74 yrs Sex: Male : 1950 Arrival Date: 12/04/2024 Time: 21:21 Bed 8 Private MD: ED Physician Montana Foster HPI: 12/04 21:40 This 74 yrs old Male presents to ER via Wheelchair with complaints of Wound ec2 Infection, RT TOE. 21:40 Patient arrives today for evaluation of her right small toe discharge. Recent ec2 amputation [address] Singh, general surgery, states now is having malodorous discharge. No fevers or chills, no nausea or vomiting.. Historical: - Home Meds: 21:40 amlodipine 10 mg tablet 2 times per day [Active]; atorvastatin 20 mg Oral tablet daily cp4 [Active]; clopidogrel 75 mg Oral tablet daily [Active]; famotidine 40 mg Oral tablet daily [Active]; fluoxetine 20 mg Oral tablet daily [Active]; levetiracetam 500 mg Oral tablet 2 times per day [Active]; lisinopril 40 mg Oral tablet daily [Active]; - PMHx: 21:40 diabetes mellitus; Hypertensive disorder; cp4 - PSHx: 21:40 Left AKA; Right little toe amputation; cp4 - Immunization history:: Adult Immunizations up to date. - Infectious Disease History:: Denies. - Social history:: Smoking status: Patient reports the use of cigarette tobacco products, smokes one pack cigarettes per day. ROS: 21:40 Constitutional: as per hpi ec2 Exam: 21:40 Constitutional: GEN: NAD Head: atraumatic Eyes: EOMI Ears: External ears are ec2 normal. CV: regular rate LUNGS: no respiratory distress ABD: non-distended SKIN: Right small toe with malodorous discharge. MSK: no evidence of trauma Vital Signs: 21:37 BP 170 / 87; Pulse 81; Resp 18; Temp 98.5; Pulse Ox 100% ; Weight 63.5 kg; Height 5 ft. cp4 6 in. ; Pain 0/10; 22:52 BP 144 / 75; Pulse 79; Resp 18; Temp 98.5; Pulse Ox 96% ; Pain 0/10; bm8 23:59 BP 131 / 70; Pulse 63; Resp 18; Temp 98.5; Pulse Ox 96% ; Pain 0/10; bm8 12/05 03:02 BP 163 / 73; Pulse 69; Resp 18; Temp 98.5; Pulse Ox 97% ; Pain 0/10; bm8 12/04 21:37 Body Mass Index 22.60 (63.50 kg, 167.64 cm) cp4 12/04 21:37 Pain Scale: Adult cp4 22:52 Pain Scale: Adult bm8 23:59 Pain Scale: Adult bm8 12/05 03:02 Pain Scale: Adult bm8 Richa Coma Score: 12/04 22:52 Eye Response: spontaneous(4). Motor Response: obeys commands(6). Verbal Response: bm8 oriented(5). Total: 15. 23:59 Eye Response: spontaneous(4). Motor Response: obeys commands(6). Verbal Response: bm8 oriented(5). Total: 15. 12/05 03:02 Eye Response: spontaneous(4). Motor Response: obeys commands(6). Verbal Response: bm8 oriented(5). Total: 15. MDM: 12/04 21:35 Medical Screening Exam initiated ec2 21:41 Data reviewed: vital signs, nurses notes. ED course: Patient arrives today for ec2 evaluation of right small toe discharge. Examination yields skin findings as above. Will obtain radiograph, lab work, treat with IV antibiotics, with malodorous discharge and appearance, this appears infected, suspect possible osteomyelitis, will require admission for IV antibiotics and general surgery consultation.. 22:08 ED course: EKG independently reviewed and interpreted by me, shows normal sinus rhythm, ec2 rate of 79, no acute ST segment elevations, intervals are nonactionable, PAC noted, QTc prolongation at 525 noted.. 22:25 ED course: Patient with hypokalemia, consistent with the patient's QTc prolongation, ec2 will supplement. Will admit for toe infection, antibiotic coverage. Discussed with hospitalist, pending admission.. 12/04 21:39 Order name: Blood Culture Adult (2) ec2 12/04 21:39 Order name: CBC with Diff ec2 12/04 21:39 Order name: CMP; Complete Time: 22:26 ec2 12/04 21:39 Order name: Lactate w/ 2H reflex if indic.; Complete Time: 22:24 ec2 12/04 21:39 Order name: Protime (+inr); Complete Time: 22:17 ec2 12/04 21:39 Order name: Ptt, Activated; Complete Time: 22:17 ec2 12/04 22:10 Order name: Manual Differential EDMS 12/05 00:43 Order name: Urinalysis w/ reflexes EDMS 12/04 21:39 Order name: Foot Right 3 View XRAY; Complete Time: 22:38 ec2 12/04 21:39 Order name: Cardiac monitoring; Complete Time: 22:05 ec2 12/04 21:39 Order name: EKG - Nurse/Tech; Complete Time: 22:04 ec2 12/04 21:39 Order name: IV Saline Lock - Large Bore; Complete Time: 22:04 ec2 12/04 21:39 Order name: Labs collected and sent; Complete Time: 22:04 ec2 12/04 21:39 Order name: O2 Per Protocol; Complete Time: 22:04 ec2 12/04 21:39 Order name: O2 Sat Monitoring; Complete Time: 22:04 ec2 12/04 21:39 Order name: Vital Signs; Complete Time: 22:04 ec2 Administered Medications: 22:04 Drug: Acetaminophen PO 1000 mg PO once Route: PO; bm8 23:06 Follow up: Response: No adverse reaction bm8 22:04 Drug: Piperacillin-Tazobactam IVPB 3.375 grams IVPB once over 60 mins; (mix in NS 100 bm8 mL) Route: IVPB; Infused Over: 60 mins; Site: right forearm; 22:51 Follow up: Response: No adverse reaction; IV Status: Completed infusion bm8 22:37 Drug: Potassium Chloride PO 40 mEq PO once Route: PO; dd2 23:06 Follow up: Response: No adverse reaction bm8 23:05 Drug: vancoMYCIN IVPB 1 grams IVPB once over 2 hrs Route: IVPB; Infused Over: 2 hrs; bm8 Site: right forearm; 12/05 03:04 Follow up: Response: No adverse reaction; IV Status: Completed infusion bm8 12/04 23:05 Drug: Potassium Chloride IV 20 mEq IV at calculated rate once; administer over 1-2 bm8 hours Route: IV; Rate: calculated rate; Site: right forearm; 12/05 01:15 Follow up: IV Status: Completed infusion; IV Intake: 100ml dd2 Disposition Summary: 12/04/24 22:26 Hospitalization Ordered Notes: Hospitalization Status: Inpatient Admission ec2 Provider: Darrel Hdez ec2 Location: Telemetry/MedSurg (Inpatient) ec2 Condition: Stable ec2 Problem: an acute exacerbation ec2 Symptoms: are unchanged ec2 Bed/Room Type: Standard ec2 Room Assignment: 220(12/05/24 02:24) lg3 Diagnosis - Toe Infection ec2 - Hypokalemia ec2 - Qtc Prolongation ec2 Forms: - Medication Reconciliation Form ec2 - SBAR form ec2 - Leadership Thank You Letter ec2 Critical care time excluding procedures: 12/04 22:25 Critical care time: Bedside Care: 30 minutes, Consultation: 5 minutes. Total time: 35 ec2 minutes Signatures: Dispatcher [employer] EDLin Estevez, RN RN lg3 Lars, Lina rv1 Montana Foster MD MD ec2 Christine Ziegler cp4 Philip Bagley RN RN bm8 SHIRA LEMUS RN RN dd2 Corrections: (The following items were deleted from the chart) 21:40 21:40 Foot Right 3 View+RAD.RAD.BRZ ordered. EDMS EDMS 21:40 21:40 BLOOD CULTURE*+BA.LAB.BRZ ordered. EDMS EDMS 21:40 21:40 CBC+H.LAB.BRZ ordered. EDMS EDMS 21:40 21:40 COMPREHENSIVE METABOLIC PANEL+C.LAB.BRZ ordered. EDMS EDMS 21:40 21:40 LACTATE+C.LAB.BRZ ordered. EDMS EDMS 21:40 21:40 PROTIME (+INR)+COAG.LAB.BRZ ordered. EDMS EDMS 21:40 21:40 PTT, ACTIVATED+COAG.LAB.BRZ ordered. EDMS EDMS 22:52 21:39 Accucheck ordered. ec2 bm8 12/05 00:48 12/04 22:26 ec2 rv1 12/05 02:24 00:48 214 rv1 lg3
--- NOTE | 2024-12-04 22:26 | ER ---
Nurse's Notes [facility] Name: Magen Zhao Age: 74 yrs Sex: Male : 1950 Arrival Date: 12/04/2024 Time: 21:21 Bed 8 Private MD: Diagnosis: Toe Infection;Hypokalemia;Qtc Prolongation Presentation: 12/04 21:37 Chief complaint: Patient states: right 5th toe amputation that is possibly infected cp4 now. Amputation was 1 month ago and saw Dr. Singh on Thursday. Patient stated he was told it was normal for it to be black and to follow up in 2 weeks. Also reports yeast infection to the groin area. Coronavirus screen: Client denies travel out of the [place] in the last 14 days. At this time, the client does not indicate any symptoms associated with coronavirus-19. Ebola Screen: Patient negative for fever greater than or equal to 101.5 degrees Fahrenheit, and additional compatible Ebola Virus Disease symptoms Patient denies exposure to infectious person. Patient denies travel to an Ebola-affected area in the 21 days before illness onset. No symptoms or risks identified at this time. Initial Sepsis Screen: Does the patient meet any 2 criteria? No. Patient's initial sepsis screen is negative. Does the patient have a suspected source of infection? No. Patient's initial sepsis screen is negative. Risk Assessment: Do you want to hurt yourself or someone else? Patient reports no desire to harm self or others. Onset of symptoms was December 04, 2024. 21:37 Method Of Arrival: Wheelchair cp4 21:37 Acuity: ELAINE 3 cp4 Triage Assessment: 21:40 General: Appears in no apparent distress. uncomfortable, Behavior is calm, cooperative, cp4 appropriate for age. Pain:. Historical: - Home Meds: 21:40 amlodipine 10 mg tablet 2 times per day [Active]; atorvastatin 20 mg Oral tablet daily cp4 [Active]; clopidogrel 75 mg Oral tablet daily [Active]; famotidine 40 mg Oral tablet daily [Active]; fluoxetine 20 mg Oral tablet daily [Active]; levetiracetam 500 mg Oral tablet 2 times per day [Active]; lisinopril 40 mg Oral tablet daily [Active]; - PMHx: 21:40 diabetes mellitus; Hypertensive disorder; cp4 - PSHx: 21:40 Left AKA; Right little toe amputation; cp4 - Immunization history:: Adult Immunizations up to date. - Infectious Disease History:: Denies. - Social history:: Smoking status: Patient reports the use of cigarette tobacco products, smokes one pack cigarettes per day. Screenin:52 [facility] ED Fall Risk Assessment (Adult) History of falling in the last 3 months, bm8 including since admission Yes- physiologic fall (2 pts) Confusion or Disorientation No (0 pts) Intoxicated or Sedated No (0 pts) Impaired Gait Yes (1 pt) Mobility Assist Device Used Yes (1 pt) Altered Elimination No (0 pt) Score/Fall Risk Level 3 or more points = High Risk Oriented to surroundings, Maintained a safe environment, Educated pt \T\ family on fall prevention, incl call for assistance when getting out of bed, Assessed \T\ reinforced patient's understanding of fall precautions, Hourly rounding (assess needs \T\ fall precautionary measures) done, Used ambulatory aids as needed (educated on \T\ assisted with), Used gait belt as appropriate Implemented a Fall Risk Plan of Care. Abuse screen: Denies threats or abuse. Nutritional screening: No deficits noted. Tuberculosis screening: No symptoms or risk factors identified. Assessment: 22:52 Reassessment: Patient appears in no apparent distress at this time. Patient and/or bm8 family updated on plan of care and expected duration. Pain level reassessed. Patient is alert, oriented x 3, equal unlabored respirations, skin warm/dry/pink. Patient denies pain at this time. Patient states feeling better. Patient states symptoms have improved. 22:52 Neuro: No deficits noted. Level of Consciousness is awake, alert, obeys commands, bm8 Oriented to person, place, time, situation, Appropriate for age. Cardiovascular: Denies chest pain. Respiratory: Airway is patent Trachea midline Respiratory effort is even, unlabored, Respiratory pattern is regular, symmetrical, Breath sounds are clear bilaterally. Musculoskeletal: Amputation of post surgical amputation one month prior Reports pain in right fifth toe. 23:59 Reassessment: Patient appears in no apparent distress at this time. Patient and/or bm8 family updated on plan of care and expected duration. Pain level reassessed. Patient is alert, oriented x 3, equal unlabored respirations, skin warm/dry/pink. Patient denies pain at this time. Patient states feeling better. Patient states symptoms have improved. 12/05 03:02 Reassessment: Patient appears in no apparent distress at this time. No changes from bm8 previously documented assessment. Patient and/or family updated on plan of care and expected duration. Pain level reassessed. Patient is alert, oriented x 3, equal unlabored respirations, skin warm/dry/pink. Vital Signs: 12/04 21:37 BP 170 / 87; Pulse 81; Resp 18; Temp 98.5; Pulse Ox 100% ; Weight 63.5 kg; Height 5 ft. cp4 6 in. ; Pain 0/10; 22:52 BP 144 / 75; Pulse 79; Resp 18; Temp 98.5; Pulse Ox 96% ; Pain 0/10; bm8 23:59 BP 131 / 70; Pulse 63; Resp 18; Temp 98.5; Pulse Ox 96% ; Pain 0/10; bm8 12/05 03:02 BP 163 / 73; Pulse 69; Resp 18; Temp 98.5; Pulse Ox 97% ; Pain 0/10; bm8 12/04 21:37 Body Mass Index 22.60 (63.50 kg, 167.64 cm) cp4 12/04 21:37 Pain Scale: Adult cp4 22:52 Pain Scale: Adult bm8 23:59 Pain Scale: Adult bm8 12/05 03:02 Pain Scale: Adult bm8 Richa Coma Score: 12/04 22:52 Eye Response: spontaneous(4). Motor Response: obeys commands(6). Verbal Response: bm8 oriented(5). Total: 15. 23:59 Eye Response: spontaneous(4). Motor Response: obeys commands(6). Verbal Response: bm8 oriented(5). Total: 15. 12/05 03:02 Eye Response: spontaneous(4). Motor Response: obeys commands(6). Verbal Response: bm8 oriented(5). Total: 15. ED Course: 12/04 21:25 Patient arrived in ED. jj6 21:32 Montana Foster MD is Attending Physician. ec2 21:40 Triage completed. cp4 21:40 Arm band placed on right wrist. Patient placed in waiting room. cp4 21:41 Philip Bagley RN is Primary Nurse. bm8 21:50 Initial lab(s) drawn, by me, sent to lab. First set of blood cultures drawn by me, EKG bm8 done, by ED staff, reviewed by Montana Foster MD. Inserted saline lock: 20 gauge in right forearm, using aseptic technique. Blood collected. Flushed with 10 mL NS. Patient maintains SpO2 saturation greater than 95% on room air. 22:05 No provider procedures requiring assistance completed. bm8 22:26 Darrel Hdez MD is Hospitalizing Provider. ec2 22:30 Foot Right 3 View XRAY In Process Unspecified. EDMS 22:52 Patient has correct armband on for positive identification. Placed in gown. Bed in low bm8 position. Call light in reach. Side rails up X2. Provided Education on: need for admission. Client placed on continuous cardiac and pulse oximetry monitoring. NIBP monitoring applied. potline monitor on. Pulse ox on. NIBP on. Door closed. Warm blanket given. Pillow given. Verbal reassurance given. Head of bed elevated. 22:52 Patient admitted, IV remains in place. bm8 Administered Medications: 22:04 Drug: Acetaminophen PO 1000 mg PO once Route: PO; bm8 23:06 Follow up: Response: No adverse reaction bm8 22:04 Drug: Piperacillin-Tazobactam IVPB 3.375 grams IVPB once over 60 mins; (mix in NS 100 bm8 mL) Route: IVPB; Infused Over: 60 mins; Site: right forearm; 22:51 Follow up: Response: No adverse reaction; IV Status: Completed infusion bm8 22:37 Drug: Potassium Chloride PO 40 mEq PO once Route: PO; dd2 23:06 Follow up: Response: No adverse reaction bm8 23:05 Drug: vancoMYCIN IVPB 1 grams IVPB once over 2 hrs Route: IVPB; Infused Over: 2 hrs; bm8 Site: right forearm; 12/05 03:04 Follow up: Response: No adverse reaction; IV Status: Completed infusion bm8 12/04 23:05 Drug: Potassium Chloride IV 20 mEq IV at calculated rate once; administer over 1-2 bm8 hours Route: IV; Rate: calculated rate; Site: right forearm; 12/05 01:15 Follow up: IV Status: Completed infusion; IV Intake: 100ml dd2 Medication: 12/04 22:52 VIS not applicable for this client. bm8 Intake: 12/05 01:15 IV: 100ml; Total: 100ml. dd2 Outcome: 12/04 22:26 Decision to Hospitalize by Provider. ec2 12/05 03:02 Admitted to Med/surg accompanied by nurse, accompanied by tech, via wheelchair, room bm8 220, with chart, Condition: stable Instructed on the need for admit, Demonstrated understanding of instructions, follow-up care, 03:04 Patient left the ED. bm8 Signatures: Dispatcher [employer] EDPrema Lambertj6 Montana Foster MD MD ec2 Christine Ziegler cp4 Philip Bagley, RN RN bm8 SHIRA LEMUS RN RN dd2
[2024-12-04] MEDS ORDERED: POTASSIUM CL SA 10 MEQ TAB PO ONE (22:35)
--- NOTE | 2024-12-04 22:35 | RAD REPORT ---
EXAMINATION: XR RIGHT FOOT CLINICAL INDICATION: Male, 74 years old. R small toe infection TECHNIQUE: Multiple views of the right foot were obtained. COMPARISON: 11/15/2024 FINDINGS: Evidence of prior to the level of the base of the proximal phalanx fifth toe. Remnant bone is irregular in shape. Bony demineralization and irregularity of the fifth metatarsal head. Soft tissue ulceration is present in the region. Findings suggest osteomyelitis. Moderate calcaneal spur. Small soft tissue ulceration on the plantar arch of the midfoot. Follow-up MRI follow-up would be recommended for confirmation.
[2024-12-04] MEDS ORDERED: NA CHLORIDE 0.9% 500 ML ONE (22:36)
[2024-12-04] MEDS ORDERED: KCL 20 MEQ/100 mL IVPB 100 ML IV ONE (22:36)
[2024-12-05 00:13] LABS: Band Neutrophils 2 % (0-1); Blood Morphology Comment NOT SEEN (NOT SEEN); Differential Total Cells Count 100; Lymphocytes 4 % (15-42); Monocytes 9 % (0-10); Platelet Estimate ADEQ; Segmented Neutrophils 85 % (40-80)
--- NOTE | 2024-12-05 00:38 | P.HP ---
Certification for Inpatient Patient admitted to: Inpatient With expected LOS: >2 Midnights Practitioner: I am a practitioner with admitting privileges, knowledge of patient current condition, hospital course, and medical plan of care. 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 Singh who was brought to ER with right small toe discharges. Started 3 to 4 days ago and has been progressively getting worse with malodorous discharge. Denies any fever or chills. No nausea vomiting diarrhea. Patient was assessed in the ER and is admitted for further management of possible cellulitis/osteomyelitis and hypokalemia Allergies No Known Allergies Allergy (Unverified 11/16/24 00:23) Home medications list reviewed: Yes Home Medications: Amlodipine Besylate 10 mg PO DAILY 11/15/24 Atorvastatin Calcium 20 mg PO DAILY 11/15/24 Clopidogrel Bisulfate [Plavix*] 75 mg PO DAILY 11/15/24 Famotidine 40 mg PO BEDTIME 11/15/24 Fluoxetine HCl 20 mg PO DAILY 11/15/24 Gabapentin 300 mg PO BID 11/15/24 Levetiracetam [Keppra Xr] 500 mg PO BID 11/15/24 Pantoprazole [Protonix Tab*] 20 mg PO BEDTIME 11/15/24 lisinopriL [Lisinopril] 40 mg PO BEDTIME 11/15/24 Doxycycline Hyclate 100 mg PO BID #14 tab 11/17/24 - Past Medical/Surgical History Past Medical History: Reviewed- Non-Contributory -: Fha-xwtqzwa-xxzywsllx diabetes -: Tobacco use disorder -: Hypertension -: Hyperlipidemia -: Seizure disorder Past Surgical History: Reviewed- Non-Contributory -: Left AKA Psychosocial/ Personal History: Patient is at home with his sister - Social History Smoking Status: Current some day smoker Alcohol use: No CD- Drugs: No Caffeine use: Yes Review of Systems 10-point ROS is otherwise unremarkable Physical Examination - Vital Signs Temperature: 98.5 F Blood Pressure: 170/87 Pulse: 82 Respirations: 18 Pulse Ox (%): 94 - Physical Exam General: Alert, In no apparent distress, Oriented x3 HEENT: Atraumatic, Normocephalic Neck: Supple Respiratory: Clear to auscultation bilaterally, Normal air movement Cardiovascular: Regular rate/rhythm, Normal S1 S2 Capillary refill: <2 Seconds Gastrointestinal: Soft and benign, W/out hepatosplenomegaly Musculoskeletal: No clubbing, Tenderness, Warmth Integumentary: No rashes, Tenderness/swelling, Erythema, Warmth Neurological: Normal speech, Normal strength at 5/5 x4 extr, Cranial nerves 3-12 intact Lymphatics: No axilla or inguinal lymphadenopathy - Studies Laboratory Data (last 24 hrs) 12/04/24 12/04/24 12/04/24 21:50 21:50 21:50 WBC 25.70 H Hgb 10.4 L Hct 30.9 L Plt Count 487 H PT 15.7 H INR 1.40 APTT 38.3 H Sodium 139 Potassium 2.5 L* BUN 14 Creatinine 1.65 H Glucose 137 H Total Bilirubin 0.5 AST 14 L ALT 15 L Alkaline Phosphatase 115 Assessment and Plan - Plan Cellulitis right foot Diabetes PAD Tobacco use disorder Hypertension Hyperlipidemia Seizure disorder Plan: Cellulitis/osteomyelitis of the right foot Pain control Started on IV antibiotic Monitor closely on telemetry General surgery consultation Tobacco use disorder Counseled extensively on need for tobacco cessation and its contribution to his poor circulation/infections Diabetes mellitus type [id number] ACHS Accu-Chek, sliding scale insulin, A1c in the morning Hypertension Hyperlipidemia Seizure disorder Continue home medications when verified GI/DVT prophylaxis Advanced directive full code Discharge Plan: Home Plan to discharge in: 48 Hours - Advance Directives Does patient have a Living Will: No Does patient have a Durable POA for Healthcare: No - Code Status/Comfort Care Code Status: Full Code Time Spent Managing Pts Care (In Minutes): 54
[2024-12-05] MEDS ORDERED: ACETAMINOPHEN 325 MG TABLET PO PRN (01:17)
[2024-12-05] MEDS ORDERED: ONDANSETRON 4 MG/2 ML VIAL IV PRN (01:17)
[2024-12-05] MEDS ORDERED: MORPHINE 2 MG/ML SYR IV PRN (01:19)
[2024-12-05] MEDS ORDERED: D10W 125 ML IV PRN (01:21)
[2024-12-05] MEDS ORDERED: GLUCAGON 1 MG/VIAL IM PRN (01:21)
[2024-12-05] MEDS ORDERED: VANCOMYCIN 1 GM in NA CHLORIDE 0.9% 250 ML IVPB SCH (02:00)
[2024-12-05] MEDS ORDERED: NA CHLORIDE 0.9% 1,000 ML ONE (02:00)
[2024-12-05] MEDS: NA CHLORIDE 0.9% 1,000 ML IV SCH (03:22)
[2024-12-05] MEDS: INSULIN REGULAR (HUMAN) 100 UNIT/ML SQ SCH (05:14)
[2024-12-05 06:38] LABS: Absolute Basophils 0.1 K/uL (0-0.5); Absolute Eosinophils 0.2 K/uL (0-0.5); Absolute Lymphocytes (CBC) 1.7 K/uL (0.7-4.9); Absolute Monocytes 1.4 K/uL (0.1-1.3); Absolute Neutrophil 18.3 K/uL (1.8-8.0); Basophils % 0.3 % (0-1.3); Eosinophils % 0.9 % (0-4.4); Hematocrit 27.5 % (39.6-49.0); Hemoglobin 9.2 g/dL (13.6-17.9); Lymphocytes % 7.7 % (15.3-44.8); MCH 26.9 pg (27.0-35.0); MCHC 33.4 g/dL (32.0-36.0); MCV 80.6 fL (80-100); MPV 8.3 fL (7.6-11.3); Monocytes % 6.6 % (3.3-12.3); Neutrophils % 84.5 % (41.7-73.7); Platelets 425 thou/uL (152-406); RBC Red Blood Cell Count 3.41 M/uL (4.33-5.43); Red Cell Distribution Width 14.3 % (12.1-15.2)
[2024-12-05] MEDS: VANCOMYCIN 1 GM in NA CHLORIDE 0.9% 250 ML IVPB SCH (08:00)
[2024-12-05] MEDS: AMLODIPINE 10 MG TAB PO SCH (08:04)
[2024-12-05] MEDS: GABAPENTIN 300 MG CAP PO SCH (08:05)
[2024-12-05] MEDS: PIPER TAZO 3.375 GM in NA CHLORIDE 0.9% 100 ML IV SCH (08:05)
[2024-12-05] MEDS: ATORVASTATIN 20 MG TAB PO SCH (08:05)
[2024-12-05] MEDS: FLUOXETINE 20 MG CAP PO SCH (08:05)
[2024-12-05] MEDS: HOME MED 1 EA UNK (Levetiracetam [Keppra Xr] 500 MG Tab.Er.24h) PO SCH (08:09)
[2024-12-05] MEDS: ENOXAPARIN 40 MG/0.4 ML SQ SCH (08:35)
[2024-12-05] MEDS: VANCOMYCIN 1.25 GM in NA CHLORIDE 0.9% 250 ML IVPB SCH (12:07)
[2024-12-05] MEDS ORDERED: SODIUM CHLORIDE 0.9% 10ML INJ IV PRN (13:13)
--- NOTE | 2024-12-05 13:14 | P.PN ---
Subjective Date of Service: 12/05/24 Patient with significant PAD and necrotic wound to the right foot; seen by Dr. Singh in office last week. Patient had debridement done the week prior. Patient will need debridement once again. However, it would be prudent to figure out the degree of vascular disease as patient with monophasic blood flow past the popliteal. Patient may even require a BKA. Will discuss with general surgery. Will also notify Dr. Bowman, vascular surgery. Patient will be admitted for inpatient hospitalization. Review of Systems 10-point ROS is otherwise unremarkable Physical Examination - Vital Signs Temperature: 98.2 F Blood Pressure: 136/72 Pulse: 71 Respirations: 16 Pulse Ox (%): 97 - Physical Exam General: Alert, In no apparent distress, Oriented x3 Respiratory: Clear to auscultation bilaterally, Normal air movement Cardiovascular: Regular rate/rhythm, Normal S1 S2, No murmurs Gastrointestinal: Normal bowel sounds, Soft and benign, Non-distended, No tenderness Musculoskeletal: No clubbing, No swelling, No tenderness Integumentary: Other (Necrotic foot wound on the right foot with decreased pulsation) Neurological: Cranial nerves 3-12 intact, Abnormal sensation - Studies Laboratory Data (last 24 hrs) 12/04/24 12/04/24 12/04/24 21:50 21:50 21:50 WBC 25.70 H Hgb 10.4 L Hct 30.9 L Plt Count 487 H PT 15.7 H INR 1.40 APTT 38.3 H Sodium 139 Potassium 2.5 L* BUN 14 Creatinine 1.65 H Glucose 137 H Total Bilirubin 0.5 AST 14 L ALT 15 L Alkaline Phosphatase 115 Medications List Reviewed: Yes Assessment & Plan - Problems (Diagnosis) (1) Type 2 diabetes mellitus Current Visit: Yes Status: Acute Qualifiers: Diabetes mellitus complication status: with neurologic complications Diabetes mellitus complication detail: with unspecified neuropathy (2) Diabetic neuropathy Current Visit: Yes Status: Acute (3) PAD (peripheral artery disease) Current Visit: Yes Status: Acute (4) Ulcer of right foot with necrosis of muscle Current Visit: Yes Status: Acute - Plan Plan: 1. Necrotic wound to the right foot; related to CAD and diabetic neuropathy; continue with antibiotics and wound care. Surgery consulted for debridement 2. PAD; continue with anti-platelet therapy and statin therapy 3. Diabetic neuropathy; continue with gabapentin 4. Type 2 diabetes; strict blood sugar control Discharge Plan: Home Plan to discharge in: Greater than 2 days - Advance Directives Does patient have a Living Will: No Does patient have a Durable POA for Healthcare: No - Code Status/Comfort Care Code Status: Full Code Critical Care: No Time Spent Managing PTS Care (In Minutes): 35
[2024-12-05] MEDS ORDERED: HEPARIN/D5W 25,000 UNIT/500 ML BAG IV SCH (14:00)
--- NOTE | 2024-12-05 14:17 | P.CNS ---
Date of Consult: 12/05/24 Reason for consult: Right foot infection History of present illness: Patient is a 74-year-old gentleman with multiple medical problems who presented to the emergency room with infected right foot wound. Patient states that 3 weeks ago he had a right fifth toe amputation done by Dr. Singh. He saw Dr. Singh last and was supposed to follow-up with him for debridement. Patient's foot over the weekend however became red, swollen, tender and more painful. Patient denies any fever or chills. Patient denies any purulent discharge at this time. Review of systems: Otherwise unremarkable Past medical history: Type 2 diabetes, hypertension, hyperlipidemia, seizure disorder, peripheral vascular disease, previous gangrene of the right foot prior to his toe amputation Past surgical history: Left above-knee amputation and right fifth toe amputation recently Allergies: None Social history: Patient smokes a pack a day and has been counseled, patient denies drinking alcohol Family history: Noncontributory Vital signs: Stable, afebrile Physical exam: Awake, alert and oriented x 3 Head and neck exam: No masses Chest: Clear Heart: S1 S2 Abdomen: Soft Extremity: Diminished dorsalis pedis and posterior tibial pulses. Palpable right popliteal pulse Neuro: Nonfocal Right foot: There is a large area of gangrene associated with swelling and appears to have purulent fluid underneath the skin on the plantar aspect of the foot. There is redness warmth and swelling in the entire foot extending to the ankle. Diagnostic data: White count is 25.7 on admission today is 21.6, lactic acid was 1.9 on admission patient had an arterial Doppler done on November 15 showing triphasic flow to the popliteal but monophasic flow in the dorsalis pedis and posterior tibial. X-ray done last night shows osteomyelitis of the fifth metatarsal head. Assessment: Right foot diabetic infection with gangrene and osteomyelitis of the metatarsal head Plan/recommendation: Incision, drainage and debridement of right foot infected gangrenous wound with probable amputation of the right fifth metatarsal head. Patient understands risk, benefits and alternatives and agrees to procedure. CC:
[2024-12-05] MEDS ORDERED: ONDANSETRON 4 MG/2 ML VIAL ONE (14:19)
[2024-12-05] MEDS ORDERED: LIDOCAINE 2% MPF 5 ML VIAL ONE (14:19)
[2024-12-05] MEDS ORDERED: FENTANYL CITR 100 MCG/2 ML ONE (14:20)
[2024-12-05] MEDS ORDERED: propofoL 200 MG/20 ML VIAL IV ONE (14:20)
[2024-12-05] MEDS ORDERED: EPHEDRINE SULF 50 MG/ML VIAL ONE (14:34)
[2024-12-05] MEDS: BUPIVACAINE 0.5% PF 10 ML VIAL ONE (15:13)
[2024-12-05] MEDS: COLLAGENASE 30 GM OINTMENT TOP ONE (15:14)
--- NOTE | 2024-12-05 15:28 | P.OP ---
Date of Service: 12/05/24 Preop diagnosis: Infected right foot wound with gangrene and osteomyelitis Postop diagnosis: Same Procedure performed: Right foot incision, drainage and debridement of infected gangrenous wound with amputation of the fifth right metatarsal head and pulse irrigation of the wound Surgeon: Eran Small MD Gift Shop Clerk: Minimal Estimated blood loss: Minimal Specimen:Pus for culture, tissue for culture and bone for culture Findings: As above Anesthesia: General Complications: None Drains: None Fluids and blood products: Nonapplicable Disposition: Recovery room Operative note: Patient brought to the OR and placed in supine position. General anesthesia began. Patient prepped and draped in usual sterile fashion. Marcaine 0.5% infiltrated locally. 15 blade and sharp dissection proceeded around the lateral and plantar aspect of the right foot where the gangrenous material was present and necrotic foul-smelling tissue was present. Dissection proceeded until healthy skin edges could be obtained. Then there was a large amount of pus which was evacuated and cultures were done. Necrotic tissue was excised and sent to pathology for culture as well as cytology. Then, the fifth metatarsal bone was dissected free. There was already destruction in the metatarsal head from the infection. Metatarsal bone to the midfoot was amputated. The necrotic bone was sent for cultures. On the plantar aspect there was a deep area of pus and necrotic tissue which was debrided sharply. Bleeding was controlled with cautery. Pulse irrigation with Betadine was done first. Then normal saline pulse irrigation was performed in the wound. All the pus was evacuated. And all necrotic tissue that was visible was excised. Jude l wet-to-dry normal saline dressing change was applied. Patient was awakened and taken to recovery room in good general condition. CC:
[2024-12-05] MEDS: HYDROCODONE/APAP 5/325 MG TAB PO PRN (20:45)
[2024-12-05] MEDS: FAMOTIDINE 20 MG TAB PO SCH (20:46)
[2024-12-05] MEDS: lisinopriL 20 MG TAB PO SCH (20:46)
[2024-12-05] MEDS: PANTOPRAZOLE 40 MG INJ IVP SCH (20:46)
[2024-12-05] MEDS ORDERED: PANTOPRAZOLE 40MG TABLET PO SCH (21:00)
[2024-12-06 05:34] LABS: Absolute Eosinophils 0.3 K/uL (0-0.5); Absolute Lymphocytes (CBC) 1.6 K/uL (0.7-4.9); Absolute Monocytes 1.3 K/uL (0.1-1.3); Absolute Neutrophil 16.9 K/uL (1.8-8.0); Basophils % 0.2 % (0-1.3); Eosinophils % 1.3 % (0-4.4); Hematocrit 25.1 % (39.6-49.0); Hemoglobin 8.5 g/dL (13.6-17.9); MCHC 33.8 g/dL (32.0-36.0); MPV 8.3 fL (7.6-11.3); Monocytes % 6.5 % (3.3-12.3); Platelets 421 thou/uL (152-406); RBC Red Blood Cell Count 3.14 M/uL (4.33-5.43); Red Cell Distribution Width 14.3 % (12.1-15.2)
[2024-12-06 05:52] LABS: ALT/SGPT < 14 U/L (16-61); AST/SGOT 13 U/L (15-37); Albumin 1.5 g/dL (3.4-5.0); Albumin/Globulin Ratio 0.3 (1.1-1.8); Alkaline Phosphatase 92 U/L (45-117); Anion Gap 9.7 mEq/L (5.0-15.0); BUN Blood Urea Nitrogen 15 mg/dL (7-18); Bicarbonate 25 mEq/L (21-32); Bilirubin Total 0.4 mg/dL (0.2-1.0); Globulin 4.7 g/dL (2.3-3.5); Glomerular Filtration Rate 48 ml/min (=/>90); Glucose Level 99 mg/dL (74-106); Potassium 2.7 mEq/L (3.5-5.1); Protein, Total 6.2 g/dL (6.4-8.2); Sodium Level 138 mEq/L (136-145)
--- NOTE | 2024-12-06 11:33 | PN ---
Date of Progress Note: 12/06/2024 Subjective: The patient is without any complaint. Objective: Vital Signs: Stable. Temperature is 99.0. Skin: His wound shows little bit of fibrin, however mostly clean wound. There is no purulent discha rge. The surrounding erythema, warmth, and edema have decreased. Laboratory Data: His white count is 20.1 with a left shift, slightly better than yesterday. Assessment: Status post incision, drainage, debridement, partial amputation of the fifth metatarsal bone, including the head and pulse irrigation of the infected wound. Recommendation: Continue IV antibiotics. Check cultures and adjust antibiotics accordingly. Wound care as ordered. Perhaps either tomorrow or Thursday, we will determine whether the patient is ready f or wound VAC. The patient will prior need some serial debridements going forward. We will also get Interventional Radiology to see if we can improve the circulation in the right leg. If not, the maris ent would be a good candidate for hyperbaric oxygen therapy. We will try to salvage this limb as muc h as we can with all the modalities we have available. /MODL Voice ID: [id number] Report ID: [id number]
[2024-12-06] MEDS: POTASSIUM CL SA 10 MEQ TAB PO ONE (15:12)
[2024-12-07] MEDS: VANCOMYCIN 1.25 GM in NA CHLORIDE 0.9% 250 ML IVPB SCH (00:40)
[2024-12-07 08:30] LABS: Specific Gravity 1.011 (1.005-1.030); Sqamous Epithelial <5 /HPF (None Seen); Urine Bacteria <20 /HPF (<20); Urine Bilirubin NEGATIVE (Negative); Urine Blood Negative (Negative); Urine Clarity Turbid (Clear); Urine Color Colorless (Yellow); Urine Culture Reflex Order NOT NEEDED; Urine Glucose 3+ (Negative); Urine Ketones NEGATIVE (Negative); Urine Microscopic Reflex YN ORDER UMIC; Urine Nitrite NEGATIVE (Negative); Urine Protein 1+ (Negative); Urine RBC None Seen /HPF (None Seen); Urine Urobilinogen Normal (Normal); Urine WBC <5 /HPF (<5); Urine Yeast (Budding) Occasional /HPF (None Seen); Urine pH 6.5 (5.0-7.0)
[2024-12-07 10:14] LABS: Absolute Basophils 0.1 K/uL (0-0.5); Absolute Eosinophils 0.5 K/uL (0-0.5); Absolute Lymphocytes (CBC) 1.2 K/uL (0.7-4.9); Absolute Monocytes 1.1 K/uL (0.1-1.3); Basophils % 0.4 % (0-1.3); Eosinophils % 2.4 % (0-4.4); Hematocrit 26.8 % (39.6-49.0); Lymphocytes % 6.5 % (15.3-44.8); MCH 26.6 pg (27.0-35.0); MCHC 33.4 g/dL (32.0-36.0); MCV 79.7 fL (80-100); MPV 8.4 fL (7.6-11.3); Monocytes % 5.8 % (3.3-12.3); Neutrophils % 84.9 % (41.7-73.7); Platelets 416 thou/uL (152-406); RBC Red Blood Cell Count 3.36 M/uL (4.33-5.43); Red Cell Distribution Width 14.4 % (12.1-15.2)
--- NOTE | 2024-12-07 12:41 | EKG ---
Test Date: 2024-12-04 Test Time: 22:01:21 Classification Inspector: DICK MEASUREMENT RESULTS: Intervals: Rate: 79 OR: 126 QRSD: 74 QT: 458 QTc: 525 [place]: P: 33 OR: 126 QRS: 8 T: -7 INTERPRETIVE STATEMENTS: Sinus rhythm with premature atrial complexes Nonspecific ST and T wave abnormality Prolonged QT Abnormal ECG Compared to ECG 11/15/2024 15:56:59 ST (T wave) deviation now present Prolonged QT interval now present Electronically Signed On 12-07-24 12:29:41 CDT by Gilbert Munson
[2024-12-07 15:00] LABS: AST/SGOT 19 U/L (15-37); Albumin 1.5 g/dL (3.4-5.0); Albumin/Globulin Ratio 0.3 (1.1-1.8); Alkaline Phosphatase 98 U/L (45-117); Anion Gap 10.4 mEq/L (5.0-15.0); BUN Blood Urea Nitrogen 15 mg/dL (7-18); Bicarbonate 23 mEq/L (21-32); Bilirubin Total 0.4 mg/dL (0.2-1.0); Globulin 5.1 g/dL (2.3-3.5); Glomerular Filtration Rate 40 ml/min (=/>90); Glucose Level 156 mg/dL (74-106); Potassium 3.4 mEq/L (3.5-5.1); Protein, Total 6.6 g/dL (6.4-8.2); Sodium Level 140 mEq/L (136-145)
[2024-12-07 15:01] LABS: ALT/SGPT < 14 U/L (16-61)
--- NOTE | 2024-12-07 18:00 | PN ---
Date of Progress Note: 12/07/2024 Subjective: Patient is awake and alert. No complaint. Subjective: Vital Signs: His vitals are stable. He is afebrile. Laboratory Data: Shows the white count is 18.8. His microbiology results are available, which shows Klebsiella pneumoniae and sensitive to Zosyn as w ell as a 3+ hdm-nval-kqlqzurou strep, which is most likely going to be sensitive to penicillin and hi s wound has some fibrin in it, but there is no purulence. The erythema, warmth, and edema is decreas ing. Assessment: Status post right foot incision, drainage, and debridement of infected wound with resect ion of the fifth metatarsal bone, and pulse irrigation. Recommendation: Continue IV antibiotics. Follow cultures and adjust accordingly. Currently, he is on the correct antibiotics. I will discuss with the hospitalist regarding discharge planning. The p atient may benefit from long-term IV antibiotics as well as peripheral arterial evaluation to see if intervention can improve the blood flow to try to salvage the limb and if it not, I think then consid eration should be given to hyperbaric oxygen therapy. Patient clinically is stable and slowly improv ing. We will follow this patient while in the hospital. /MODL Voice ID: [id number] Report ID: [id number]
[2024-12-08 11:00] LABS: Absolute Basophils 0.1 K/uL (0-0.5); Absolute Eosinophils 0.3 K/uL (0-0.5); Absolute Lymphocytes (CBC) 1.3 K/uL (0.7-4.9); Basophils % 0.5 % (0-1.3); Eosinophils % 1.5 % (0-4.4); Hematocrit 26.6 % (39.6-49.0); Hemoglobin 8.9 g/dL (13.6-17.9); Lymphocytes % 7.1 % (15.3-44.8); MCH 26.7 pg (27.0-35.0); MCHC 33.3 g/dL (32.0-36.0); MPV 8.5 fL (7.6-11.3); Monocytes % 5.3 % (3.3-12.3); Neutrophils % 85.6 % (41.7-73.7); Platelets 464 thou/uL (152-406); RBC Red Blood Cell Count 3.33 M/uL (4.33-5.43); Red Cell Distribution Width 14.3 % (12.1-15.2)
[2024-12-08 11:15] LABS: AST/SGOT 25 U/L (15-37); Albumin 1.5 g/dL (3.4-5.0); Albumin/Globulin Ratio 0.3 (1.1-1.8); Alkaline Phosphatase 89 U/L (45-117); BUN Blood Urea Nitrogen 16 mg/dL (7-18); Bicarbonate 23 mEq/L (21-32); Bilirubin Total 0.4 mg/dL (0.2-1.0); Globulin 5.1 g/dL (2.3-3.5); Glomerular Filtration Rate 42 ml/min (=/>90); Glucose Level 123 mg/dL (74-106); Protein, Total 6.6 g/dL (6.4-8.2); Sodium Level 141 mEq/L (136-145)
[2024-12-08 11:16] LABS: ALT/SGPT < 14 U/L (16-61)
[2024-12-08 12:47] LABS: Blood Morphology Comment NOTED (NOT SEEN); Differential Total Cells Count 100; Eosinophils 1 % (0-3); Lymphocytes 9 % (15-42); Monocytes 2 % (0-10); Platelet Estimate INCR; Segmented Neutrophils 88 % (40-80)
[2024-12-08 12:48] LABS: Spherocyte 1+
[2024-12-08] MEDS: VANCOMYCIN 1 GM in NA CHLORIDE 0.9% 250 ML IVPB SCH (12:58)
[2024-12-08] MEDS: POTASSIUM 25 MEQ EFFERV TAB PO SCH (18:34)
--- NOTE | 2024-12-08 19:11 | PN ---
Date of Progress Note: 12/08/2024 Subjective: The patient is awake, alert. No complaint. Vitals stable, afebrile. White count is 18.6, essentially unchanged. Dressing is clean, dry, and intact. Assessment: Status post incision, drainage, and debridement of right foot abscess with gangrene and fifth metatarsal head amputation. Recommendations: We will go ahead and consult ID. I spoke with yesterday. He is planning on doing possibly a procedure tomorrow based on how the patient's clinical status is, if the white count is coming down. If not, may be delayed until next week. We will also get ID consult to see which antibiotic use is most appropriate based on the culture reports. The patient has Enterococcus faecalis and Klebsiella pneumoniae present, sensitive to vancomycin and Zosyn which he is on and discharge planning. /MODL Voice ID: [id number] Report ID: [id number] [facility]
--- NOTE | 2024-12-08 19:34 | RAD REPORT ---
Procedure: Chest Single View HISTORY: PICC line placement FINDINGS: PICC line has been placed with its tip in the superior vena cava.
[2024-12-08] MEDS: Mupirocin NASAL 2 APPL/1 GM TUBE NAS SCH (20:16)
[2024-12-09 08:07] LABS: Absolute Basophils 0.1 K/uL (0-0.5); Absolute Eosinophils 0.5 K/uL (0-0.5); Absolute Lymphocytes (CBC) 1.6 K/uL (0.7-4.9); Absolute Monocytes 1.2 K/uL (0.1-1.3); Absolute Neutrophil 12.3 K/uL (1.8-8.0); Basophils % 0.5 % (0-1.3); Eosinophils % 3.1 % (0-4.4); Hematocrit 27.8 % (39.6-49.0); Hemoglobin 9.3 g/dL (13.6-17.9); Lymphocytes % 10.1 % (15.3-44.8); MCH 26.5 pg (27.0-35.0); MCHC 33.5 g/dL (32.0-36.0); MCV 79.2 fL (80-100); MPV 8.7 fL (7.6-11.3); Neutrophils % 78.3 % (41.7-73.7); Platelets 475 thou/uL (152-406); RBC Red Blood Cell Count 3.51 M/uL (4.33-5.43); Red Cell Distribution Width 14.4 % (12.1-15.2)
[2024-12-09 08:11] LABS: Albumin 1.6 g/dL (3.4-5.0); Albumin/Globulin Ratio 0.3 (1.1-1.8); Anion Gap 11.3 mEq/L (5.0-15.0); Bilirubin Total 0.4 mg/dL (0.2-1.0); Globulin 5.3 g/dL (2.3-3.5); Magnesium 2.1 mg/dL (1.6-2.4); Potassium 3.3 mEq/L (3.5-5.1); Protein, Total 6.9 g/dL (6.4-8.2)
[2024-12-09 08:21] LABS: PT Prothrombin Time 13.8 SECONDS (10-13.0); PTT, Activated Partial Thromb 34.6 SECONDS (27.2-37.4); Protime INR 1.22
--- NOTE | 2024-12-09 09:16 | PN ---
Date of Progress Note: 12/09/2024 Subjective: The patient is awake, alert. No complaints. Vital signs are stable. Does have a PICC line in and Dr. Jhaveri does have him scheduled for an aortogram with runoffs later today. His white co unt is pending and ID consult is pending as well. His dressing is clean, dry, intact. Assessment: Status post incision, drainage, and debridement of gangrenous infected right foot wound with partial resection of the fifth metatarsal head and bone. Recommendations: Continue wound care as ordered. IV antibiotics as ordered. Await recommendation b y the ID team. We will await Interventional Radiology recommendation and see what their study shows. Discharge planning is already in motion. The patient is to follow up with me [facility] upon discharge. /MODL Voice ID: [id number] Report ID: [id number]
--- NOTE | 2024-12-09 12:14 | P.HP ---
Date of Service: 12/07/24 CC Right leg wound, pain HPI The patient is a 74-year-old male with peripheral artery disease. Arterial ultrasound demonstrates monophasic wave forms in the right anterior tibial and posterior tibial arteries, consistent with severe, greater than 70% stenosis. The patient has symptoms. He has constant ischemic rest pain in the right lower leg. Pain is present currently all the patient lays in bed. He has gangrene of the fifth metatarsal head, status post open surgical resection. He has an open wound. The wound has been present for more than 3 weeks. He has a history of hypertension, diabetes, hyperlipidemia. He has a history of smoking. He has had previous debridement and amputation. He has a left above-knee amputation. PMHx HTN Type II DM skin color/texture change arterial wound ampuation status PSHx above the knee amputation FHx mother - at father - at Soc Hx Current every day smoker Occasional drink No illicit drug use ROS Constitutional: (-)fever, (-)night sweats, (-)chills, (-)cold intolerance, (-)heat intolerance, (+)fatigue, (-)daytime somnolence Eyes: (-)change in vision, (-)loss of vision, (-)blurred vision, (-)tearing, (- )purulent discharge Ears: (-)difficulty hearing, (-)hearing loss, (-)ear pain/ear ache, (-)tinnitus Nose: (-)nasal congestion, (-)nasal discharge, (-)epistaxis Mouth/Throat/Voice: (-)lip sores, (-)mouth sores, (-)tongue sores, (-)sore throat, (-)dysphagia, (-)odynophagia, (-)gum bleeding, (-)hoarse voice, (-)change in voice quality Neck: (-)neck pain, (-)neck stiffness, (-)neck lumps Respiratory: (-)dyspnea, (-)cough, (-)hemoptysis Cardiovascular: (-)chest pain, (-)palpitations, (-)dyspnea at rest, (+)lower extremity edema, (+)varicosities Gastrointestinal: (-)abdominal pain, (-)rectal pain, (-)vomiting, (-)vomiting blood Urinary: (-)dysuria, (-)hematuria, (-)polyuria, (-)oliguria Dermatologic/Integumentary: (-)change in hair texture, (+)change in skin silke ture, (+)skin wounds, (+)itching, (-)rash, (-)bruising Musculoskeletal: (+)muscle pain, (+)back pain, (+)tender points, (+)muscle cramps, (-)muscle weakness, (-)decreased muscle strength, (+)difficulty walking Neurological: (-)headaches, (-)vertigo, (-)lightheadedness, (-)fainting, (- )blackout(s), (-)numbness, (-)tingling, (-)tremor Psychiatric: (-)change in mood, (-)depression, (-)sadness interfering with function, (-)anxiety, (-)nerousness, (-)suicidal ideation Hematologic/Lymphatic: (-)easy bruising, (-)difficulty stopping blood flow, (- )lymph node enlargement Mental/Functional The patient's speech was normal, sharing conversation with normal laryngeal efforts. Appropriate mood and affect were seen on exam. Thought processes were logical, relevant, and thoughts were completed normally. Thought content was normal. Thought content was normal with no psychotic or suicidal thoughts. The patient's judgement was realistic with normal insight into their present condition. Mental status i ncluded: correct time, place, person orientation, normal recent and remote memory, normal attention span and concentration ability. Language skills included the ability to correctly name objects. Fund of knowledge included normal awareness of current and past events. Laboratory Last Values WBC 25.70 thou/uL (4.3-10.9) H 12/04/24 21:50 RBC 3.87 M/uL (4.33-5.43) L 12/04/24 21:50 Hgb 10.4 g/dL (13.6-17.9) L 12/04/24 21:50 Hct 30.9 % (39.6-49.0) L 12/04/24 21:50 MCV 79.9 fL (80-100) L 12/04/24 21:50 MCH 26.8 pg (27.0-35.0) L 12/04/24 21:50 MCHC 33.5 g/dL (32.0-36.0) 12/04/24 21:50 RDW 14.5 % (12.1-15.2) 12/04/24 21:50 Plt Count 487 thou/uL (152-406) H 12/04/24 21:50 MPV 8.3 fL (7.6-11.3) 12/04/24 21:50 Neutrophils % 87.1 % (41.7-73.7) H 12/04/24 21:50 Lymphocytes % 5.4 % (15.3-44.8) L 12/04/24 21:50 Monocytes % 7.1 % (3.3-12.3) 12/04/24 21:50 Eosinophils % 0.2 % (0-4.4) 12/04/24 21:50 Basophils % 0.2 % (0-1.3) 12/04/24 21:50 Absolute Neutrophils 22.4 K/uL (1.8-8.0) H 12/04/24 21:50 Segmented Neutrophils 85 % (40-80) H 12/04/24 21:50 Band Neutrophils 2 % (0-1) H 12/04/24 21:50 Absolute Lymphocytes 1.4 K/uL (0.7-4.9) 12/04/24 21:50 Lymphocytes 4 % (15-42) L 12/04/24 21:50 Monocytes 9 % (0-10) 12/04/24 21:50 Absolute Monocytes 1.8 K/uL (0.1-1.3) H 12/04/24 21:50 Absolute Eosinophils 0.0 K/uL (0-0.5) 12/04/24 21:50 Absolute Basophils 0.0 K/uL (0-0.5) 12/04/24 21:50 Platelet Estimate Adeq 12/04/24 21:50 Morphology Comment Not seen (NOT SEEN) 12/04/24 21:50 PT 15.7 SECONDS (10-13.0) H 12/04/24 21:50 INR 1.40 12/04/24 21:50 APTT 38.3 SECONDS (27.2-37.4) H 12/04/24 21:50 Sodium 139 mEq/L (136-145) 12/04/24 21:50 Potassium 2.5 mEq/L (3.5-5.1) L* 12/04/24 21:50 Chloride 103 mEq/L (98-107) 12/04/24 21:50 Carbon Dioxide 27 mEq/L (21-32) 12/04/24 21:50 Anion Gap 11.5 mEq/L (5.0-15.0) 12/04/24 21:50 BUN 14 mg/dL (7-18) 12/04/24 21:50 Creatinine 1.65 mg/dL (0.70-1.30) H 12/04/24 21:50 Est GFR (CKD-EPI) 44 ml/min (=/>90) L 12/04/24 21:50 Glucose 137 mg/dL (74-106) H 12/04/24 21:50 Lactic Acid 1.9 mmol/L (0.4-2.0) 12/04/24 21:50 Calcium 8.9 mg/dL (8.5-10.1) 12/04/24 21:50 Total Bilirubin 0.5 mg/dL (0.2-1.0) 12/04/24 21:50 AST 14 U/L (15-37) L 12/04/24 21:50 ALT 15 U/L (16-61) L 12/04/24 21:50 Alkaline Phosphatase 115 U/L (45-117) 12/04/24 21:50 Serum Total Protein 7.7 g/dL (6.4-8.2) 12/04/24 21:50 Albumin 1.9 g/dL (3.4-5.0) L 12/04/24 21:50 Globulin 5.8 g/dL (2.3-3.5) H 12/04/24 21:50 Albumin/Globulin Ratio 0.3 (1.1-1.8) L 12/04/24 21:50 Temp Pulse Resp BP Pulse Ox 98.1 F 76 16 159/82 H 95 12/09/24 08:00 12/09/24 09:22 12/09/24 08:00 12/09/24 09:22 12/09/24 08:00 EXAM GEN: NAD, cooperative with exam, well groomed, well developed, well n ourished HEENT: Head normocephalic, atraumatic, head normocephalic, head atraumatic, EOMI NECK: full range of motion, trachea midline, no increased JVP visible RESP: no respiratory distress, no use of accessory muscles of respiration CV: regular rate and rhythm , pulse rate regular GI: NL abdominal inspection, soft, nontender to palpation, no rebound/guarding/rigidity DERM: (-)diaphoresis, (-)periorbital xanthelasma, (-)xanthomas, (-)cyanosis PSYCH: alert and oriented to time, place, and person, normal mood, normal affect Left leg: Above-knee amputation. Femoral pulse palpable. Right leg: Femoral pulse palpable. Popliteal, dorsalis pedis and posterior tibial pulses nonpalpable. Foot cool. Capillary refill 3-4 seconds. Open wound. Results Results of arterial ultrasound reviewed Assessment Ischemic ulcer of toe (I70.235) [place] arteries of right leg w ulcer oth prt foot Peripheral vascular disease with rest pain (I70.221) [place] arteries of extremities w rest pain, right leg Plan 1. The patient is a 74-year-old male with history of hypertension, diabetes, smoking, with poorly healing wound to the right foot, status post fifth metatarsal amputation. He has left above-knee amputation. 2. Arterial ultrasound image is monophasic wave forms present in the right anterior tibial and posterior tibial arteries. 3. Patient has Rosa 6 critical limb threatening ischemia and is at high risk for additional amputation and possibly below-knee amputation 4. Recommend treatment with right leg catheter arteriogram with revascularization. Procedure involved risks, benefits and alternatives explained in detail to the patient. He fully understands and consents and wished to proceed.
--- NOTE | 2024-12-09 12:27 | CON ---
History Of Present Illness: This is a 74-year-old male. I was consulted for evaluation of right christine t cellulitis and right foot diabetic foot ulcer, status post amputation of the right fifth toe. The patient has a large ulceration, which is still open and undermining. Currently, the patient is on Zo syn. Past Medical History: Diabetes mellitus, hypertension, diabetic neuropathy, peripheral arterial dise ase, AV tobacco use, hyperlipidemia, seizure disorder. Social History: Tobacco: Positive. Alcohol: Negative. Family History: Noncontributory. Medications: Zosyn. See MARs for other medications. Allergies: NO KNOWN DRUG ALLERGIES. Review of Systems: Ten-point review was performed. Physical Examination: General: This is a 74-year-old male, lying in bed, not in any acute cardiopulmonary distress. Vital Signs: Temperature 98, pulse 76, respirations 16, blood pressure 159/82. HEENT: Unremarkable. Neck: Supple. Lungs: Basal crackles. Heart: S1, S2. Regular. Abdomen: Soft, nontender. Bowel sounds present. Extremities: Muscle wasting noted. Right foot wound noted. Laboratory Data: WBC 15.6, hemoglobin 9.3, platelets are 475. Chemistry shows BUN of 14, creatinine 1.8. Micro data shows multiple cultures growing Klebsiella pneumoniae and Enterococcus faecalis. Assessment And Plan: Right foot diabetic foot ulcer, status post debridement for necrotic ulceration in the fifth metatarsal, osteomyelitis, growing Klebsiella pneumoniae and Enterococcus faecalis. We will recommend the patient to be switched to Rocephin and Cipro IV for next 42 days. Consider Home Health versus long-term acute care as the patient also has peripheral arterial disease and renal insu fficiency, which can complicate treatment plan with intravenous antibiotic. Peripheral arterial dise ase, the patient is getting Doppler today to evaluate his compromise of circulation. Consider Mediho mark with alginate to the wound site. Consider seizing tobacco use. We will follow the patient close ly. Thank you for consult. NF/MODL Voice ID: [id number] Report ID: [id number]
[2024-12-09] MEDS: KCL 20 MEQ/100 mL IVPB 20 MEQ/100 ML BAG IV SCH ×2 (14:03→20:53)
[2024-12-09] MEDS ORDERED: HEPA 1000U/500MLS 2,000 UNIT/1,000 ML BAG IV ONE (15:50)
[2024-12-09] MEDS ORDERED: FENTANYL CITR 100 MCG/2 ML ONE (15:51)
[2024-12-09] MEDS ORDERED: MIDAZOLAM HCL 2 MG/2 ML INJ ONE (15:51)
[2024-12-09] MEDS ORDERED: ATROPINE SULF 1 MG/10 ML SYR IV ONE (15:51)
[2024-12-09] MEDS ORDERED: HEPARIN 10,000 UNIT/10 ML VIAL IV ONE (15:51)
[2024-12-09] MEDS ORDERED: LIDOCAINE 1% 20 ML MDV ONE (15:51)
[2024-12-09] MEDS ORDERED: NA CHLORIDE 0.9% 500 ML ONE (16:14)
[2024-12-09] MEDS ORDERED: PROTAMINE SULF 50 MG/5ML INJ IV ONE (17:13)
--- NOTE | 2024-12-09 18:43 | P.OP ---
Date of Service: 12/09/24 Procedures performed 1. Left common femoral artery puncture under ultrasound guidance with placement of sheath 2. Right superficial femoral artery catheterization with arteriogram with runoff to the foot 3. Right anterior tibial balloon angioplasty 4. Hemostasis with direct manual compression History The patient is a 74-year-old male with severe peripheral artery disease. Patient has a poorly healing wound of the right foot. He has constant ischemic rest pain in the right lower leg. He has pain even in bed. Patient has read the first 6 critical limb threatening ischemia and is at risk for below-knee amputation. He presents for catheter arteriogram and revascularization. Dosimetry Radiation - Procedure was performed in the senior cytogenetics laboratory director on a [employer] system Sedation: Provided by the performing physician Drugs administered for sedation: 0.5 mg Versed IV, 25 micro grams fentanyl IV Sedation time (minutes): 48 The performing physician was directly supervising a trained, independent observer, who was present throughout moderate sedation, and providing constant monitoring of the patient throughout moderate sedation, including monitoring the patient's level of consciousness as well as physiological status, including monitoring measurements of blood pressure, pulse oximetry, heart rhythm, and patient responsiveness. This observer had no other duties other than monitoring the patient. Contrast Volume: 50 ml Heparin administered IV during procedure for thromboembolism prophylaxis: 5000 units Estimated blood loss: Less than 10ml Procedure Ultrasound was used to identify the left common femoral artery and its patency. The artery appeared to be sonographically patent and suitable for puncture and access. Under ultrasound guidance, 19g needle was advanced into the common femoral artery. Ultrasound image documenting guidance and arterial patency was obtained and stored. Wire was placed followed by a 4F sheath. Multisidehole catheter was advanced into the abdominal aorta and contrast injected to obtain to obtain abdominal angiogram. Catheter was retracted to the aortic bifurcation and contrast injected to obtain pelvic angiogram. Catheter was then advanced over the aortic bifurcation to the contralateral right superficial femoral artery where contrast was injected to obtain right leg angiogram with runoff to the foot. Based on the results of the diagnostic arteriogram, decision was made to proceed to intervene. A [employer] destination 6 [place] by 60 cm sheath was placed into the right distal superficial femoral artery. A Glidewire advantage 035 wire was then used to cross complete 100% occlusion of the anterior tibial artery. Initially, a 3 mm x 120 mm 035 balloon catheter was used for balloon angioplasty. However, this would not cross the distal anterior tibial artery occlusion. Subsequent, the wire was changed to command 14 wire, over which a [employer] evercross, tapered 2.5-2 mm, by 210 mm balloon catheter was introduced and used to balloon angioplasty of the entire anterior tibial artery and dorsalis pedis artery with inflation to 10 jose. Arteriogram demonstrated excellent results. Exam was concluded, catheter and sheath removed and hemostasis achieved using Mynx. Patient was in good condition. Findings Diagnostic arteriogram: Abdominal aorta: The abdominal aorta is patent. Aortic bifurcation is patent. Patent bilateral common iliac arteries and external iliac arteries. Right leg: Right common femoral artery is patent. Superficial femoral artery demonstrates 30% stenosis but is patent. Palpatory arteries patent. The anterior tibial artery demonstrates 90% stenosis at the proximal calf, and complete 100% occlusion of the distal calf. There is complete 100% occlusion of the posterior tibial artery and the peroneal artery from the origin downwards. Interventions: Complete 100% occlusion of the right anterior tibial artery was crossed and then treated with balloon angioplasty using a tapered 2.5-2 mm balloon. The entire artery was treated, from its ostium into the dorsalis pedis artery. Excellent results, with significant improved perfusion into the foot following intervention. Impression 1. Patent right aortoiliac segments 2. Mild superficial femoral artery disease. 3. Patent popliteal artery. 4. Complete 100% occlusion of the anterior tibial, posterior tibial and peroneal arteries. 5. Right anterior tibial artery occlusion treated with balloon angioplasty 6. Right posterior tibial artery occlusion will likely require pedal approach r evascularization as an outpatient
[2024-12-09] MEDS: PIPER TAZO 3.375 GM in NA CHLORIDE 0.9% 100 ML IV ONE (20:57)
[2024-12-10 01:49] VITALS: BMI 22.4
[2024-12-10] MEDS: KCL 20 MEQ/100 mL IVPB 20 MEQ/100 ML BAG IV SCH (09:00)
[2024-12-10] MEDS: POTASSIUM CL SA 10 MEQ TAB PO ONE ×2 (09:32→21:22)
--- NOTE | 2024-12-10 09:33 | PN ---
Date of Progress Note: 12/10/2024 Subjective: The patient is awake, alert. No complaints. The patient was seen by Dr. Katz, switch ing the patient to [place] and [place] for 6 weeks. The patient also underwent an arterial angiogram with procedure done by Dr. Schulz and he had opened up one of the lower leg vessels, I believe it was t he anterior tibial artery, so that should help hopefully with the wound healing. His vital signs are stable. He is afebrile. His laboratory data reviewed. His white count was down yesterday to 15.6. His dressing is clean, dry, intact. His toes are pink. There is no significant change in his woun d. Assessment: Status post incision, drainage, and debridement of right foot and gangrenous wound with resection of the metatarsal head. Recommendations: Antibiotics per ID. Discharge planning. The patient from surgical standpoint can follow up with me in the [facility]. We can arrange for the patient to have wound VAC. /MODL Voice ID: [id number] Report ID: [id number]
[2024-12-10] MEDS: INSULIN REGULAR (HUMAN) 100 UNIT/ML SQ SCH (21:00)
[2024-12-11 05:03] LABS: Absolute Basophils 0.1 K/uL (0-0.5); Absolute Eosinophils 0.6 K/uL (0-0.5); Absolute Lymphocytes (CBC) 2.1 K/uL (0.7-4.9); Absolute Neutrophil 8.6 K/uL (1.8-8.0); Basophils % 0.7 % (0-1.3); Eosinophils % 4.8 % (0-4.4); Hematocrit 24.5 % (39.6-49.0); Hemoglobin 8.2 g/dL (13.6-17.9); Lymphocytes % 16.6 % (15.3-44.8); MCH 26.7 pg (27.0-35.0); MCHC 33.4 g/dL (32.0-36.0); MCV 79.7 fL (80-100); MPV 8.2 fL (7.6-11.3); Monocytes % 8.3 % (3.3-12.3); Neutrophils % 69.6 % (41.7-73.7); Platelets 407 thou/uL (152-406); RBC Red Blood Cell Count 3.08 M/uL (4.33-5.43); Red Cell Distribution Width 14.9 % (12.1-15.2)
[2024-12-11 05:15] LABS: Anion Gap 9.2 mEq/L (5.0-15.0); Potassium 3.2 mEq/L (3.5-5.1)
[2024-12-11] MEDS: POTASSIUM 25 MEQ EFFERV TAB PO ONE ×2 (05:47→21:42)
--- NOTE | 2024-12-11 09:44 | PN ---
Date of Progress Note: 12/11/2024 Subjective: Patient is awake, alert. No complaint. Vitals stable, afebrile. The patient's white c ount is down to 12.4. There is no left shift anymore. Examination of the wound reveals good granula tion tissue. For the most part, there is some fibrin and some necrotic fibrin on the edges, but ther e is no purulence. The erythema, warmth, and edema surrounding the wound have all resolved. Assessment: Status post right foot incision, drainage, and debridement and right fifth metatarsal am putation. Recommendations: I would continue Santyl with Vashe wet-to-dry with the patient. At this time, as t he patient is clinically improving, the antibiotics recommendation by Dr. Katz should be discussed with Dr. Dumont and at this time, as the patient is clinically improving, I would recommend keeping the patient on the same antibiotics as it seems to have a beneficial effect. However, Dr. Dumont and Dr. Katz can discuss going forward, which antibiotics are appropriate. I can follow up this patient in the [facility] upon discharge. The patient may need some debridement as an outpatient and depending upon the response that the patient may be a candidate for hyperbaric oxygen therapy. Disc santiago planning is in progress. /MODL Voice ID: [id number] Report ID: [id number]
[2024-12-12 04:40] LABS: Anion Gap 10.6 mEq/L (5.0-15.0); Potassium 3.6 mEq/L (3.5-5.1)
--- NOTE | 2024-12-12 07:18 | P.PN ---
Date of Service: 12/06/24 Subjective Patient is clinically doing well. Patient s/p surgery; overall feeling better. Still with significant wound. Physical Examination - Vital Signs reviewed - Physical Exam General: Alert, In no apparent distress, Oriented x3 Respiratory: Clear to auscultation bilaterally, Normal air movement Cardiovascular: Regular rate/rhythm, Normal S1 S2, No murmurs Gastrointestinal: Normal bowel sounds, Soft and benign, Non-distended, No tenderness Musculoskeletal: No clubbing, No swelling, No tenderness Integumentary: Other (Necrotic foot wound on the right foot with decreased pulsation) Neurological: Cranial nerves 3-12 intact, Abnormal sensation Assessment & Plan - Problems (Diagnosis) (1) Type 2 diabetes mellitus Current Visit: Yes Status: Acute Qualifiers: Diabetes mellitus complication status: with neurologic complications Diabetes mellitus complication detail: with unspecified neuropathy (2) Diabetic neuropathy Current Visit: Yes Status: Acute (3) PAD (peripheral artery disease) Current Visit: Yes Status: Acute (4) Ulcer of right foot with necrosis of muscle Current Visit: Yes Status: Acute - Plan Continue with plan of care as mentioned below: 1. Necrotic wound to the right foot; related to CAD and diabetic neuropathy; continue with antibiotics and wound care. s/p debridement;12/05. Continue with wound care 2. PAD; continue with anti-platelet therapy and statin therapy; vascular surgery consulted 3. Diabetic neuropathy; continue with gabapentin 4. Type 2 diabetes; strict blood sugar control Discharge Plan: Home Plan to discharge in: Greater than 2 days - Advance Directives Does patient have a Living Will: No Does patient have a Durable POA for Healthcare: No - Code Status/Comfort Care Code Status: Full Code Critical Care: No Time Spent Managing PTS Care (In Minutes): 35
[2024-12-12] MEDS: POTASSIUM 25 MEQ EFFERV TAB PO ONE (09:03)
--- NOTE | 2024-12-12 09:07 | P.PN ---
Date of Service: 12/07/24 Subjective Patient continues to improve. Awaiting for further evaluation by General/vascular surgery. Continue with active wound care. Placement is his biggest issue at this time. Because of aggressive wound care and deconditioning and debility will work on LTAC placement. Vascular surgery consulted for angioplasty. Physical Examination - Vital Signs reviewed - Physical Exam General: Alert, In no apparent distress, Oriented x3 Respiratory: Clear to auscultation bilaterally, Normal air movement Cardiovascular: Regular rate/rhythm, Normal S1 S2, No murmurs Gastrointestinal: Normal bowel sounds, Soft and benign, Non-distended, No tenderness Musculoskeletal: No clubbing, No swelling, No tenderness Integumentary: Other (Necrotic foot wound on the right foot with decreased pulsation) Neurological: Abnormal sensation Assessment & Plan - Problems (Diagnosis) (1) Type 2 diabetes mellitus Current Visit: Yes Status: Acute Qualifiers: Diabetes mellitus complication status: with neurologic complications Diabetes mellitus complication detail: with unspecified neuropathy (2) Diabetic neuropathy Current Visit: Yes Status: Acute (3) PAD (peripheral artery disease) Current Visit: Yes Status: Acute (4) Ulcer of right foot with necrosis of muscle Current Visit: Yes Status: Acute - Plan Continue with plan of care as mentioned below: 1. Necrotic wound to the right foot; related to CAD and diabetic neuropathy; continue with antibiotics and wound care. s/p debridement;12/05. Continue with wound care 2. PAD; continue with anti-platelet therapy and statin therapy; vascular surgery consulted 3. Diabetic neuropathy; continue with gabapentin 4. Type 2 diabetes; strict blood sugar control Discharge Plan: Home Plan to discharge in: Greater than 2 days - Advance Directives Does patient have a Living Will: No Does patient have a Durable POA for Healthcare: No - Code Status/Comfort Care Code Status: Full Code Critical Care: No Time Spent Managing PTS Care (In Minutes): 35
--- NOTE | 2024-12-12 09:08 | P.PN ---
Date of Service: 12/08/24 Subjective Patient is clinically doing well. Patient denies any new complaints. Angioplasty in a.m.. Physical Examination - Vital Signs reviewed - Physical Exam General: Alert, In no apparent distress, Oriented x3 Respiratory: Clear to auscultation bilaterally, Normal air movement Cardiovascular: Regular rate/rhythm, Normal S1 S2, No murmurs Gastrointestinal: Normal bowel sounds, Soft and benign, Non-distended, No tenderness Musculoskeletal: No clubbing, No swelling, No tenderness Integumentary: Other (Necrotic foot wound on the right foot with decreased pulsation) Neurological: Abnormal sensation Assessment & Plan - Problems (Diagnosis) (1) Type 2 diabetes mellitus Current Visit: Yes Status: Acute Qualifiers: Diabetes mellitus complication status: with neurologic complications Diabetes mellitus complication detail: with unspecified neuropathy (2) Diabetic neuropathy Current Visit: Yes Status: Acute (3) PAD (peripheral artery disease) Current Visit: Yes Status: Acute (4) Ulcer of right foot with necrosis of muscle Current Visit: Yes Status: Acute - Plan Continue with plan of care as mentioned below: 1. Necrotic wound to the right foot; related to CAD and diabetic neuropathy; continue with antibiotics and wound care. s/p debridement;12/05. Continue with wound care 2. PAD; continue with anti-platelet therapy and statin therapy; vascular surgery consulted ; angioplasty in a.m. 3. Diabetic neuropathy; continue with gabapentin 4. Type 2 diabetes; strict blood sugar control Discharge Plan: Home Plan to discharge in: Greater than 2 days - Advance Directives Does patient have a Living Will: No Does patient have a Durable POA for Healthcare: No - Code Status/Comfort Care Code Status: Full Code Critical Care: No Time Spent Managing PTS Care (In Minutes): 35
--- NOTE | 2024-12-12 09:10 | P.PN ---
Date of Service: 12/09/24 Subjective patient is status post angioplasty; patient had multiple occlusions of the distal vasculature with angioplasty of the anterior tibialis. Continue with anti-platelet therapy and statin therapy; continue with wound care. Hopefully, with revascularization wound can heal better. Physical Examination - Vital Signs reviewed - Physical Exam General: Alert, In no apparent distress, Oriented x3 Respiratory: Clear to auscultation bilaterally, Normal air movement Cardiovascular: Regular rate/rhythm, Normal S1 S2, No murmurs Gastrointestinal: Normal bowel sounds, Soft and benign, Non-distended, No tenderness Musculoskeletal: No clubbing, No swelling, No tenderness Integumentary: Other (Necrotic foot wound on the right foot with decreased pulsation) Neurological: Abnormal sensation Assessment & Plan - Problems (Diagnosis) (1) Type 2 diabetes mellitus Current Visit: Yes Status: Acute Qualifiers: Diabetes mellitus complication status: with neurologic complications Diabetes mellitus complication detail: with unspecified neuropathy (2) Diabetic neuropathy Current Visit: Yes Status: Acute (3) PAD (peripheral artery disease) Current Visit: Yes Status: Acute (4) Ulcer of right foot with necrosis of muscle Current Visit: Yes Status: Acute - Plan Continue with plan of care as mentioned below: 1. Necrotic wound to the right foot; related to CAD and diabetic neuropathy; continue with antibiotics and wound care. s/p debridement; 12/05. Continue with wound care 2. PAD; continue with anti-platelet therapy and statin therapy; vascular surgery consulted ; angioplasty on 12/09 3. Diabetic neuropathy; continue with gabapentin 4. Type 2 diabetes; strict blood sugar control Discharge Plan: SNF Plan to discharge in: Greater than 2 days - Advance Directives Does patient have a Living Will: No Does patient have a Durable POA for Healthcare: No - Code Status/Comfort Care Code Status: Full Code Critical Care: No Time Spent Managing PTS Care (In Minutes): 20
--- NOTE | 2024-12-12 09:11 | P.PN ---
Date of Service: 12/10/24 Subjective Patient denies any new complaints. Blood sugars are stable. Doing well overall. Continue with wound care and IV antibiotics. Physical Examination - Vital Signs reviewed - Physical Exam General: Alert, In no apparent distress, Oriented x3 Respiratory: Clear to auscultation bilaterally, Normal air movement Cardiovascular: Regular rate/rhythm, Normal S1 S2, No murmurs Gastrointestinal: Normal bowel sounds, Soft and benign, Non-distended, No tenderness Musculoskeletal: No clubbing, No swelling, No tenderness Integumentary: Other (Necrotic foot wound on the right foot with decreased pulsation) Neurological: Abnormal sensation Assessment & Plan - Problems (Diagnosis) (1) Type 2 diabetes mellitus Current Visit: Yes Status: Acute Qualifiers: Diabetes mellitus complication status: with neurologic complications Diabetes mellitus complication detail: with unspecified neuropathy (2) Diabetic neuropathy Current Visit: Yes Status: Acute (3) PAD (peripheral artery disease) Current Visit: Yes Status: Acute (4) Ulcer of right foot with necrosis of muscle Current Visit: Yes Status: Acute - Plan Continue with plan of care as mentioned below: 1. Necrotic wound to the right foot; related to CAD and diabetic neuropathy; continue with antibiotics and wound care. s/p debridement; 12/05. Continue with wound care ; continue with IV antibiotic therapy as well. 2. PAD; continue with anti-platelet therapy and statin therapy; vascular surge ry consulted ; angioplasty on 12/09 3. Diabetic neuropathy; continue with gabapentin 4. Type 2 diabetes; strict blood sugar control Discharge Plan: SNF Plan to discharge in: Greater than 2 days - Advance Directives Does patient have a Living Will: No Does patient have a Durable POA for Healthcare: No - Code Status/Comfort Care Code Status: Full Code Critical Care: No Time Spent Managing PTS Care (In Minutes): 20
--- NOTE | 2024-12-12 09:13 | P.PN ---
Date of Service: 12/11/24 Subjective Awaiting for LTAC placement; continue with IV antibiotics and wound care. Status post I and D and amputation of the distal metatarsal and the 5th toe on the right foot; status post stent placement of the anterior tibial artery; continue with anti-platelet therapy and statin therapy. Physical Examination - Vital Signs reviewed - Physical Exam General: Alert, In no apparent distress, Oriented x3 Respiratory: Clear to auscultation bilaterally, Normal air movement Cardiovascular: Regular rate/rhythm, Normal S1 S2, No murmurs Gastrointestinal: Normal bowel sounds, Soft and benign, Non-distended, No tenderness Musculoskeletal: No clubbing, No swelling, No tenderness Integumentary: Other (Necrotic foot wound on the right foot with decreased pulsation) Neurological: Abnormal sensation Assessment & Plan - Problems (Diagnosis) (1) Type 2 diabetes mellitus Current Visit: Yes Status: Acute Qualifiers: Diabetes mellitus complication status: with neurologic complications Diabetes mellitus complication detail: with unspecified neuropathy (2) Diabetic neuropathy Current Visit: Yes Status: Acute (3) PAD (peripheral artery disease) Current Visit: Yes Status: Acute (4) Ulcer of right foot with necrosis of muscle Current Visit: Yes Status: Acute - Plan Continue with plan of care as mentioned below: 1. Necrotic wound to the right foot; related to CAD and diabetic neuropathy; continue with antibiotics and wound care. s/p debridement; 12/05. Continue with wound care ; continue with IV antibiotic therapy as well. 2. PAD; continue with anti-platelet therapy and statin therapy; vascular surgery consulted ; angioplasty on 12/09 3. Diabetic neuropathy; continue with gabapentin 4. Type 2 diabetes; strict blood sugar control Discharge Plan: SNF Plan to discharge in: Greater than 2 days - Advance Directives Does patient have a Living Will: No Does patient have a Durable POA for Healthcare: No - Code Status/Comfort Care Code Status: Full Code Critical Care: No Time Spent Managing PTS Care (In Minutes): 20
--- NOTE | 2024-12-12 12:22 | PN ---
Subjective: The patient is lying in bed. Denies any headache, nausea, vomiting, chest pain, abdomin al pain, constipation, or diarrhea. Objective: Vital Signs: Reviewed. Lungs: Basal crackles. Heart: S1, S2. Regular. Abdomen: Soft, nontender. Bowel sounds present. Extremities: No edema. Foot wound noted with the help of nurse. Laboratory Data: Shows WBC 12.4, hemoglobin 8.2, platelets 407. Chemistry shows BUN of 15, creatini ne 1.9. The patient is currently on Zosyn. Wound culture growing Klebsiella pneumoniae and Enteroco ccus faecalis. Assessment And Plan: 1. Right foot osteomyelitis, status post amputation of fifth metatarsal, fifth toe. The patient has large surgical wound being managed by surgical team with [facility]. We will continue Zosyn for now. Re commend duration of treatment is 6 weeks. Leukocytosis is improving. 2. Renal insufficiency. 3. Severe protein-calorie malnourishment. 4. Diabetic neuropathy. 5. Diabetes mellitus. We will continue to monitor patient with WBC and fever trends. NF/MODL Voice ID: [id number] Report ID: [id number]
[2024-12-12] MEDS: CEFTRIAXONE 2,000 MG in NA CHLORIDE 0.9% 100 ML IV SCH (13:33)
[2024-12-12] MEDS: COLLAGENASE 30 GM OINTMENT TOP SCH (13:34)
[2024-12-12] MEDS: CIPROFLOXACIN HCL 500 MG TAB PO SCH (17:55)
[2024-12-12] MEDS: GLUCERNA SHAKE 237 ML CAN PO SCH (21:00)
--- NOTE | 2024-12-13 05:55 | P.PN ---
Date of Service: 12/12/24 Subjective Spoke with general surgery and plan now is for patient to go home with IV antibiotic therapy; Rocephin 1 g IV daily for 6 weeks and ciprofloxacin 500 mg p.o. twice daily; home health nurse to monitor and send labs to PCP. Long-term prognosis of recovery is poor as patient is very poorly compliant; patient also will follow-up with vascular surgery as an outpatient; status post angioplasty during hospitalization. Physical Examination - Vital Signs reviewed - Physical Exam General: Alert, In no apparent distress, Oriented x3 Respiratory: Clear to auscultation bilaterally, Normal air movement Cardiovascular: Regular rate/rhythm, Normal S1 S2, No murmurs Gastrointestinal: Normal bowel sounds, Soft and benign, Non-distended, No tenderness Musculoskeletal: No clubbing, No swelling, No tenderness Integumentary: Other (Necrotic foot wound on the right foot with decreased pulsation) Neurological: Abnormal sensation Assessment & Plan - Problems (Diagnosis) (1) Type 2 diabetes mellitus Current Visit: Yes Status: Acute Qualifiers: Diabetes mellitus complication status: with neurologic complications Diabetes mellitus complication detail: with unspecified neuropathy (2) Diabetic neuropathy Current Visit: Yes Status: Acute (3) PAD (peripheral artery disease) Current Visit: Yes Status: Acute (4) Ulcer of right foot with necrosis of muscle Current Visit: Yes Status: Acute - Plan Continue with plan of care as mentioned below: 1. Necrotic wound to the right foot; related to CAD and diabetic neuropathy; continue with antibiotics and wound care. s/p debridement; 12/05. Continue with wound care ; continue with IV antibiotic therapy as well. 2. PAD; continue with anti-platelet therapy and statin therapy; vascular surgery consulted ; angioplasty on 12/09 3. Diabetic neuropathy; continue with gabapentin 4. Type 2 diabetes; strict blood sugar control Discharge Plan: Home with Plan to discharge in: Greater than 2 days - Advance Directives Does patient have a Living Will: No Does patient have a Durable POA for Healthcare: No - Code Status/Comfort Care Code Status: Full Code Critical Care: No Time Spent Managing PTS Care (In Minutes): 25
[2024-12-13 07:50] LABS: Absolute Basophils 0.1 K/uL (0-0.5); Absolute Eosinophils 0.6 K/uL (0-0.5); Absolute Neutrophil 7.8 K/uL (1.8-8.0); Basophils % 0.8 % (0-1.3); Eosinophils % 5.6 % (0-4.4); Hemoglobin 9.1 g/dL (13.6-17.9); Lymphocytes % 17.5 % (15.3-44.8); MCHC 32.4 g/dL (32.0-36.0); MCV 80.1 fL (80-100); Monocytes % 8.4 % (3.3-12.3); Neutrophils % 67.7 % (41.7-73.7); Nucleated Red Blood Cells % 0.1 % (0-0); Platelets 404 thou/uL (152-406); RBC Red Blood Cell Count 3.49 M/uL (4.33-5.43); Red Cell Distribution Width 14.8 % (12.1-15.2)
[2024-12-13 07:58] LABS: Anion Gap 7.6 mEq/L (5.0-15.0); Potassium 3.6 mEq/L (3.5-5.1)
[2024-12-13] MEDS: ASPIRIN EC 81 MG TAB PO SCH (09:29)
--- NOTE | 2024-12-13 12:08 | P.PN ---
Date of Service: 12/13/24 Subjective Awake with meaningful conversation No new complaints Reports desire for HH HH with wound care and IV antibiotics being arranged ROS 10 point ROS as noted above, otherwise negative Physical Exam General: Alert and Oriented x3, NAD Respiratory: Clear BBS, symmetrical chest wall movement Cardiovascular: RRR, Normal S1 S2, No murmurs noted Gastrointestinal: Normal bowel sounds, Soft on palpation Musculoskeletal: No clubbing, No swelling, No tenderness Integumentary: Other (Necrotic foot wound on the right foot with decreased pulsation) Neurological: Abnormal sensation Vitals Reviewed Problem list Ulcer of Right Foot with necrosis of muscle PAD Diabetic neuropathy Type 2 Diabete Mellitus Plan Ulcer of Right Foot with necrosis of muscle PAD Diabetic neuropathy - Necrotic wound to the right foot related to CAD and diabetic neuropathy - s/p debridement on 12/05 - Continue with wound care, now with wound vac - continue with IV antibiotic therapy as well - continue with anti-platelet therapy and statin therapy -vascular surgery consulted, S/p angioplasty on 12/09 - Diabetic neuropathy; continue with gabapentin Type 2 Diabete Mellitus -strict blood sugar control -Accucheck with SSI Full code HH with wound care and IV antibiotics being arranged Time Spent Managing Pts Care (In Minutes): 35
--- NOTE | 2024-12-13 14:42 | P.PN ---
Subjective: No chest pain or shortness of breath. No nausea or vomiting. No abdominal pain. No obvious bleeding. Looks comfortable in the bed. Objective: General appearance: Alert and comfortable CVS: Normal S1 and S2 Lungs: Clear to auscultation bilaterally Abdomen: Soft, bowel sounds present, no tenderness Extremities: No lower extremity edema. 74-year-old patient with right foot infection status post I&D, continue antibiotics as per ID team, leukocytosis improving. Chronic anemia, follow-up with PCP. PAWAN on CKD 3A, monitor closely on antibiotics. Plan discussed with nancy gonzalez and case management team, waiting for home antibiotics and home health set up.
[2024-12-13] MEDS: Mupirocin NASAL 2 APPL/1 GM TUBE NAS SCH (20:14)
[2024-12-14 01:24] VITALS: O2SAT 96
[2024-12-14] MEDS: WATER FOR INJ,STERILE 10 ML ONE (07:17)
[2024-12-14] MEDS: ALTEPLASE 2 MG/VIAL IV SCH (07:17)
--- NOTE | 2024-12-14 08:41 | P.PN ---
Date of Service: 12/14/24 Subjective Sleeping comfortably, NAD, awakens easily, hemodynamically stable no new complaints Continue care plan while awaiting for HH and IV antibiotics to be arranged ROS 10 point ROS as noted above, otherwise negative Physical Exam General: AAO x3, NAD Respiratory: Clear BBS, on RA Cardiovascular: RRR, Normal S1 S2, No murmurs noted Gastrointestinal: Normal bowel sounds, Soft on palpation Musculoskeletal: No clubbing, No swelling, No tenderness Integumentary: Other (Necrotic foot wound on the right foot with decreased pulsation) Neurological: Abnormal sensation Vitals Reviewed Problem list Ulcer of Right Foot with necrosis of muscle PAD Diabetic neuropathy Type 2 Diabete Mellitus Plan Ulcer of Right Foot with necrosis of muscle PAD Diabetic neuropathy - Necrotic wound to the right foot related to CAD and diabetic neuropathy - s/p debridement on 12/05 - Continue with wound care, now with wound vac - continue with IV antibiotic therapy as well - continue with anti-platelet therapy and statin therapy - vascular surgery consulted, S/p angioplasty on 12/09 - Diabetic neuropathy; continue with gabapentin Type 2 Diabete Mellitus- stable -strict blood sugar control -Accucheck with SSI Full code HH with wound care and IV antibiotics being arranged Time Spent Managing Pts Care (In Minutes): 35
--- NOTE | 2024-12-14 14:54 | PN ---
Subjective: The patient is lying in bed. No new acute event. Chart reviewed. Objective: Vital Signs: Reviewed. Lungs: Basal crackles. Heart: S1, S2. Regular. Abdomen: Soft, nontender. Bowel sounds present. Extremities: No edema. Wound noted. Laboratory Data: WBC 11.5, hemoglobin 9.1, platelets 404. Chemistry shows BUN of 17, creatinine of 2.09. Assessment And Plan: 1. Right foot osteomyelitis, status post amputation of fifth toe and fifth metatarsal. The patient i s doing well. Wound care per surgical team. 2. Mild leukocytosis still present. 3. Anemia of chronic disease. 4. The patient is currently on Rocephin. 5. Diabetes mellitus and diabetic neuropathy. 6. Monitor signs of infection with WBC and fever trends. NF/MODL Voice ID: [id number] Report ID: [id number]
[2024-12-15 06:35] LABS: Anion Gap 10.7 mEq/L (5.0-15.0); Potassium 3.7 mEq/L (3.5-5.1)
[2024-12-15 06:55] LABS: Absolute Basophils 0.1 K/uL (0-0.5); Absolute Eosinophils 0.6 K/uL (0-0.5); Absolute Lymphocytes (CBC) 2.1 K/uL (0.7-4.9); Absolute Monocytes 1.1 K/uL (0.1-1.3); Absolute Neutrophil 9.1 K/uL (1.8-8.0); Basophils % 0.6 % (0-1.3); Eosinophils % 4.4 % (0-4.4); Hematocrit 25.3 % (39.6-49.0); Hemoglobin 8.4 g/dL (13.6-17.9); MCH 26.9 pg (27.0-35.0); MCHC 33.4 g/dL (32.0-36.0); MCV 80.5 fL (80-100); MPV 9.6 fL (7.6-11.3); Monocytes % 8.5 % (3.3-12.3); Neutrophils % 70.5 % (41.7-73.7); Nucleated Red Blood Cells % 0.2 % (0-0); Platelets 363 thou/uL (152-406); RBC Red Blood Cell Count 3.14 M/uL (4.33-5.43); Red Cell Distribution Width 14.9 % (12.1-15.2)
[2024-12-15 12:13] VITALS: BP 125/72; TEMP 98.2
--- NOTE | 2024-12-15 13:29 | P.DS ---
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 Singh who was brought to ER with right small toe discharges. Started 3 to 4 days prior to admission and had been progressively getting worse with malodorous discharge. Hospital Course: Vascular surgery was consulted and patient underwent: Debridement on 12/05 and then angioplasty on 12/09. Patient was started on oral ciprofloxacin as well as IV Rocephin and is to complete for a total of 6 weeks. Home health was set up by case management with delivery of a wound-vac and IV antibiotics. Wound-vac to be placed on patient in the home setting after discharge with home health company per hospital attending. Patient denied chronic kidney disease and was informed to follow up outpatient for repeat labs and monitoring of kidney function. Vital Signs/Physical Exam: Temp Pulse Resp BP Pulse Ox 98.2 F 74 16 125/72 98 12/15/24 12:00 12/15/24 12:00 12/15/24 12:00 12/15/24 12:00 12/15/24 12:00 General: Alert, In no apparent distress, Oriented x3 (forgetful ) HEENT: Atraumatic, PERRLA, EOMI Neck: Supple, JVD not distended Respiratory: Clear to auscultation bilaterally, Normal air movement Cardiovascular: Regular rate/rhythm, Normal S1 S2 Capillary refill: <2 Seconds Gastrointestinal: Normal bowel sounds, No tenderness Musculoskeletal: No tenderness Integumentary: Venous stasis ulcer (dressing C/D/I) Neurological: Normal speech, Normal tone, Normal affect Lymphatics: No axilla or inguinal lymphadenopathy Laboratory Data at Discharge: WBC 13.00 thou/uL (4.3-10.9) H 12/15/24 05:50 Hgb 8.4 g/dL (13.6-17.9) L 12/15/24 05:50 Hct 25.3 % (39.6-49.0) L 12/15/24 05:50 Plt Count 363 thou/uL (152-406) 12/15/24 05:50 PT 13.8 SECONDS (10-13.0) H 12/09/24 07:22 INR 1.22 12/09/24 07:22 APTT 34.6 SECONDS (27.2-37.4) 12/09/24 07:22 Sodium 141 mEq/L (136-145) 12/15/24 05:50 Potassium 3.7 mEq/L (3.5-5.1) 12/15/24 05:50 BUN 21 mg/dL (7-18) H 12/15/24 05:50 Creatinine 1.95 mg/dL (0.70-1.30) H 12/15/24 05:50 Glucose 123 mg/dL (74-106) H 12/15/24 05:50 Magnesium 2.1 mg/dL (1.6-2.4) 12/09/24 07:22 Total Bilirubin 0.4 mg/dL (0.2-1.0) 12/09/24 07:22 AST 22 U/L (15-37) 12/09/24 07:22 ALT 16 U/L (16-61) 12/09/24 07:22 Alkaline Phosphatase 88 U/L (45-117) 12/09/24 07:22 Triglycerides 159 mg/dL (<150) H 12/14/24 06:02 Cholesterol 133 mg/dL (<200) 12/14/24 06:02 HDL Cholesterol 41 mg/dL (40-60) 12/14/24 06:02 Cholesterol/HDL Ratio 3.24 12/14/24 06:02 Home Medications: Amlodipine Besylate 10 mg PO DAILY 11/15/24 Atorvastatin Calcium 20 mg PO DAILY 11/15/24 Clopidogrel Bisulfate [Plavix*] 75 mg PO DAILY 11/15/24 Fluoxetine HCl 20 mg PO DAILY 11/15/24 Gabapentin 300 mg PO BID 11/15/24 Levetiracetam [Keppra Xr] 500 mg PO BID 11/15/24 Pantoprazole [Protonix Tab*] 20 mg PO BEDTIME 11/15/24 lisinopriL [Lisinopril] 40 mg PO BEDTIME 11/15/24 Aspirin [Aspirin EC 81 MG] 81 mg PO DAILY 30 Days 12/15/24 Ciprofloxacin HCl [Cipro 500 MG Tablet] 500 mg PO BID 38 Days #77 tab 12/15/24 Collagenase [Santyl Ointment*] 1 appl TOP DAILY #0 gm 12/15/24 Glucerna Shake [Glucerna*] 237 ml PO BID can 12/15/24 New Medications: Aspirin [Aspirin EC 81 MG] 81 mg PO DAILY 30 Days Ciprofloxacin HCl [Cipro 500 MG Tablet] 500 mg PO BID 38 Days #77 tab Physician Discharge Instructions: Patient to follow up with vascular, cardiology, PCP, and nephrology. Follow-up for repeat CBC/CMP. Continue antibiotics as prescribed with home health. Continue wound care and wound VAC management outpatient,as ordered. Diet: Diabetic Activity: Non-weight bearing (Right foot/woundvac) Followup: Inessa Arellano [ACTIVE - CAN ADMIT] - 1-2 Weeks Gilbert Munson MD [ACTIVE - CAN ADMIT] - 1-2 Weeks Eran Small MD [ACTIVE - CAN ADMIT] - 1-2 Weeks Amrit Schulz MD [ACTIVE - CAN ADMIT] - 1-2 Weeks Time spent managing pt's care (in minutes): 32
--- NOTE | 2024-12-15 19:30 | PN ---
Subjective: The patient is being discharged today, not in any distress. Denies any other problems. Objective: Vital Signs: Reviewed. Lungs: Basal crackles. Laboratory Data: The patient's cultures grew Enterococcus faecalis and Klebsiella pneumoniae from hi s foot bone. Lab data shows WBC 13,000, hemoglobin 8.4, platelets are 363. BUN 21, creatinine 1.9. Currently, on Rocephin and Cipro. Assessment And Plan: Osteomyelitis of right foot. Leukocytosis. Status post debridement. The patient doing better. Anemia of chronic disease. Moderate protein-calorie malnourishment. Continue antibiotic total of 6 weeks. Consider long-term if the patient does not improve. We will f ollow the patient closely. NF/MODL Voice ID: [id number] Report ID: [id number]
== END 2024-12-15 14:05 | disposition home health service (06) | DRG 239 ==
LOC: ER 21:21 → 2ND 12-05 00:38
PROVIDERS: ADMIT Family Medicine; ATTEND Hospitalist
PROC: 0JBQ0ZZ Excision of Right Foot Subcutaneous Tissue and Fascia, Open Approach (ICD-10-PCS; 2024-12-05)
PROC: 0Y6M0ZF Detachment at Right Foot, Partial 5th Ray, Open Approach (ICD-10-PCS; principal; 2024-12-05 14:00)
PROC: 02HV33Z Insertion of Infusion Device into Superior Vena Cava, Percutaneous Approach (ICD-10-PCS; 2024-12-08)
PROC: 047K3ZZ Dilation of Right Femoral Artery, Percutaneous Approach (ICD-10-PCS; 2024-12-09)
PROC: B41F1ZZ Fluoroscopy of Right Lower Extremity Arteries using Low Osmolar Contrast (ICD-10-PCS; 2024-12-09)
DX: E11.52 Type 2 diabetes mellitus with diabetic peripheral angiopathy with gangrene (principal); E43 Unspecified severe protein-calorie malnutrition; L03.115 Cellulitis of right lower limb; M86.171 Other acute osteomyelitis, right ankle and foot; N17.9 Acute kidney failure, unspecified; E11.69 Type 2 diabetes mellitus with other specified complication; E11.40 Type 2 diabetes mellitus with diabetic neuropathy, unspecified; L97.513 Non-pressure chronic ulcer of other part of right foot with necrosis of muscle; E11.621 Type 2 diabetes mellitus with foot ulcer; E78.5 Hyperlipidemia, unspecified; E87.6 Hypokalemia; I12.9 Hypertensive chronic kidney disease with stage 1 through stage 4 chronic kidney disease, or unspecified chronic kidney disease; N18.31 Chronic kidney disease, stage 3a; E11.22 Type 2 diabetes mellitus with diabetic chronic kidney disease; D63.1 Anemia in chronic kidney disease; G40.909 Epilepsy, unspecified, not intractable, without status epilepticus; I25.10 Atherosclerotic heart disease of native coronary artery without angina pectoris; F17.210 Nicotine dependence, cigarettes, uncomplicated; B95.2 Enterococcus as the cause of diseases classified elsewhere; B96.1 Klebsiella pneumoniae [K. pneumoniae] as the cause of diseases classified elsewhere; R94.31 Abnormal electrocardiogram [ECG] [EKG]; Z79.02 Long term (current) use of antithrombotics/antiplatelets; Z79.899 Other long term (current) drug therapy; Z89.612 Acquired absence of left leg above knee; Z89.421 Acquired absence of other right toe(s); Z68.22 Body mass index [BMI] 22.0-22.9, adult; Z79.82 Long term (current) use of aspirin
CPT/HCPCS: 36200; 36246; 36247; 36415; 36569; 37228; 71045; 76937; 80048; 80053; 80061; 80202; 81001; 82947; 83605; 83735; 84132; 85025; 85610; 85730; 87040; 87070; 87075; 87077; 87176; 87186; 87205; 88304; 88305; 88311; 93005; 96365; 96366; 96367; 96368; 99152; 99153; 99285; C1725; C1760; C1769; C1893; J0461; J0696; J1650; J1815; J2003; J2250; J2405; J2470; J2543; J2704; J2720; J2997; J3010; J3370; J3480; J3590; J7030; J7040; J7050

== ENCOUNTER 2025-01-15 13:22 | Emergency (ER) | payer OTHER ==
--- NOTE | 2025-01-15 13:52 | EDPHYS ---
Physician Documentation [facility] Name: Magen Zhao Age: 74 yrs Sex: Male : 1950 Arrival Date: 01/15/2025 Time: 13:22 Bed IW9 Private MD: ED Physician Dmitri Fox HPI: 01/15 13:52 This 74 yrs old Male presents to ER via Unassigned with complaints of Rash. kb 13:52 Pt is a 73 year old male who presents for rash to upper extremities and back that kb started about a week ago. Reports itching to rash. Denies fever or any other complaints. Historical: - Allergies: 13:53 No Known Allergies; me1 - PMHx: 13:53 diabetes mellitus; Hypertensive disorder; me1 - PSHx: 13:53 Left AKA; Right little toe amputation; me1 - Immunization history:: Adult Immunizations up to date. - Infectious Disease History:: Denies. - Social history:: Smoking status: Patient reports the use of cigarette tobacco products, cigars. ROS: 13:52 Constitutional: As per HPI kb Exam: 13:52 Constitutional: This is a well developed, well nourished patient who is awake, alert, kb and in no acute distress. Head/Face: Normocephalic, atraumatic. ENT: Moist Mucous membranes Cardiovascular: Regular rate Respiratory: Respirations even and unlabored. No increased work of breathing. Talking in full sentences MS/ Extremity: Pulses equal, no cyanosis. Neurovascular intact. Full, normal range of motion. Neuro: Awake and alert, GCS 15, oriented to person, place, time, and situation. 13:52 Skin: rash a moderate rash is noted, rash can be described as nonspecific, on the back, right arm and left arm, Vital Signs: 13:51 BP 152 / 85; Pulse 87; Resp 17; Temp 98.4; Pulse Ox 100% ; Weight 63.5 kg; Height 5 ft. me1 6 in. ; Pain 2/10; 13:51 Body Mass Index 22.60 (63.50 kg, 167.64 cm) me1 13:51 Pain Scale: Adult me1 MDM: 13:32 Medical Screening Exam initiated kb 13:52 Differential diagnosis: impetigo, allergic reaction, parasite infection. Data reviewed: kb vital signs, nurses notes. Historians other than the Patient: Family Member: family . Counseling: I had a detailed discussion with the patient and/or guardian regarding the historical points, exam findings, and any diagnostic results supporting the discharge/admit diagnosis, the need for outpatient follow up, a family practitioner, to return to the emergency department if symptoms worsen or persist or if there are any questions or concerns that arise at home. Administered Medications: 14:00 Drug: diphenhydrAMINE PO 25 mg PO once Route: PO; me1 14:05 Follow up: Response: No adverse reaction me1 14:00 Drug: Famotidine PO 20 mg PO once Route: PO; me1 14:05 Follow up: Response: No adverse reaction me1 14:00 Drug: predniSONE PO 40 mg PO once Route: PO; me1 14:05 Follow up: Response: No adverse reaction me1 Disposition Summary: 01/15/25 13:51 Discharge Ordered Notes: Location: Home kb Condition: Stable kb Diagnosis - Rash and other nonspecific skin eruption kb Followup: kb - With: Emergency Department - When: As needed - Reason: Worsening of condition Followup: kb - With: Private Physician - When: 2 - 3 days - Reason: Recheck today's complaints, Continuance of care, Re-evaluation by your physician Discharge Instructions: - Discharge Summary Sheet kb - Rash, Adult, [id number] kb Forms: - Medication Reconciliation Form kb - Antibiotic Education kb - Prescription Opioid Use kb - Patient Portal Instructions kb - Leadership Thank You Letter kb - Family Work Release me1 Prescriptions: - Elimite 5 % Topical Cream - apply 1 application TOPICAL route one time Wash after 12 hours.; 60 gram; kb Refills: 0, Product Selection Permitted - Pepcid 20 mg Oral Tablet - take 1 tablet ORAL route every 12 hours for 5 days; 10 tablet; Refills: 0, kb Product Selection Permitted - Prednisone 20 mg Oral Tablet - take 1 tablet ORAL route once daily for 5 days; 5 tablet; Refills: 0, Product kb Selection Permitted Signatures: Stephanie Ríos FNP-C FNP-Brinda Loyd, RN RN me1
[2025-01-15] MEDS ORDERED: predniSONE 20 MG TAB ONE (13:57)
[2025-01-15] MEDS ORDERED: DIPHENHYDRAMINE 25 MG TAB/CAP ONE (13:57)
[2025-01-15] MEDS ORDERED: FAMOTIDINE 20 MG TAB ONE (13:57)
--- NOTE | 2025-01-15 14:06 | ER ---
Nurse's Notes [facility] Name: Magen Zhao Age: 74 yrs Sex: Male : 1950 Arrival Date: 01/15/2025 Time: 13:22 Bed IW9 Private MD: Diagnosis: Rash and other nonspecific skin eruption Presentation: 01/15 13:51 Chief complaint: Patient states: generalized rash, red, raised and itchy worse on neck, me1 upper back, and periarea started 3 or 4 days ago. Coronavirus screen: At this time, the client does not indicate any symptoms associated with coronavirus-19. Ebola Screen: No symptoms or risks identified at this time. Initial Sepsis Screen: Does the patient meet any 2 criteria? No. Patient's initial sepsis screen is negative. Does the patient have a suspected source of infection? No. Patient's initial sepsis screen is negative. Risk Assessment: Do you want to hurt yourself or someone else? Patient reports no desire to harm self or others. Onset of symptoms was January 11, 2025. 13:51 Method Of Arrival: Wheelchair me1 13:51 Acuity: ELAINE 4 me1 Historical: - Allergies: 13:53 No Known Allergies; me1 - PMHx: 13:53 diabetes mellitus; Hypertensive disorder; me1 - PSHx: 13:53 Left AKA; Right little toe amputation; me1 - Immunization history:: Adult Immunizations up to date. - Infectious Disease History:: Denies. - Social history:: Smoking status: Patient reports the use of cigarette tobacco products, cigars. Screenin:03 [facility] ED Fall Risk Assessment (Adult) History of falling in the last 3 months, me1 including since admission No falls in past 3 months (0 pts) Confusion or Disorientation No (0 pts) Intoxicated or Sedated No (0 pts) Impaired Gait No (0 pts) Mobility Assist Device Used No (0 pt) Altered Elimination No (0 pt) Score/Fall Risk Level 0 - 2 = Low Risk Maintained a safe environment, Provided non-skid footwear, Hourly rounding (assess needs \T\ fall precautionary measures) done. Abuse screen: Denies threats or abuse. Nutritional screening: No deficits noted. Tuberculosis screening: No symptoms or risk factors identified. Assessment: 14:03 General: Appears in no apparent distress. unkempt, well developed, Behavior is calm, me1 cooperative, appropriate for age. Pain: Denies pain. Neuro: Level of Consciousness is awake, alert, obeys commands, Oriented to person, place, time, situation, Appropriate for age. Cardiovascular: Patient's skin is warm and dry. Respiratory: Airway is patent Respiratory effort is even, unlabored, Respiratory pattern is regular, symmetrical. GI: No signs and/or symptoms were reported involving the gastrointestinal system. : No signs and/or symptoms were reported regarding the genitourinary system. EENT: No signs and/or symptoms were reported regarding the EENT system. Derm: Rash noted that is red, raised, itchy, generalized. Worse on neck, upper back and periarea. Musculoskeletal: Amputation of left leg. Vital Signs: 13:51 BP 152 / 85; Pulse 87; Resp 17; Temp 98.4; Pulse Ox 100% ; Weight 63.5 kg; Height 5 ft. me1 6 in. ; Pain 2/10; 13:51 Body Mass Index 22.60 (63.50 kg, 167.64 cm) me1 13:51 Pain Scale: Adult me1 ED Course: 13:26 Patient arrived in ED. sj2 13:32 [facility]C [facility] kb 13:32 Dmitri Fox MD is Attending Physician. kb 13:53 Triage completed. me1 13:53 Arm band placed on Patient placed in waiting room. me1 14:03 Patient has correct armband on for positive identification. Bed in low position. Call me1 light in reach. Side rails up X 1. Provided Education on: POC. . 14:03 No provider procedures requiring assistance completed. Patient did not have IV access me1 during this emergency room visit. Administered Medications: 14:00 Drug: diphenhydrAMINE PO 25 mg PO once Route: PO; me1 14:05 Follow up: Response: No adverse reaction me1 14:00 Drug: Famotidine PO 20 mg PO once Route: PO; me1 14:05 Follow up: Response: No adverse reaction me1 14:00 Drug: predniSONE PO 40 mg PO once Route: PO; me1 14:05 Follow up: Response: No adverse reaction me1 Medication: 14:03 VIS not applicable for this client. me1 Outcome: 13:51 Discharge ordered by MD. hebert 14:03 Discharged to home via wheelchair, with family, me1 14:03 Condition: stable 14:03 Discharge instructions given to patient, family, Instructed on discharge instructions, follow up and referral plans. medication usage, Demonstrated understanding of instructions, follow-up care, medications, Prescriptions given X 3, 14:05 Patient left the ED. me1 Signatures: Stephanie Ríos, CIGARETTE MAKING MACHINE CATCHER-C CIGARETTE MAKING MACHINE CATCHER-Brinda Loyd, RN RN me1 Lauren Carrasquillo 2
[2025-01-17 04:45] VITALS: BP 152/85; TEMP 98.4; O2SAT 100
== END 2025-01-15 14:05 | disposition home or self-care (01) ==
LOC: ER 13:22
DX: R21 Rash and other nonspecific skin eruption (principal); Z72.0 Tobacco use
CPT/HCPCS: 99283; J7512